=== PATIENT | male | born 1965 | race Caucasian/White ===

== ENCOUNTER 2016-11-20 19:47 | Observation (INO) | payer OTHER ==
--- NOTE | 2016-11-20 20:30 | ED Physician Documentation ---
History of Present Illness - Stated complaint Stated Complaint: FAST HR/HEADACHE - Chief complaint Chief Complaint: General - History obtained from History obtained from: Patient - History of Present Illness Timing: Other (51-year-old gentleman with chronic testicular pain, tobacco abuse , otherwise pretty healthy for the last couple of weeks has noticed some odd symptoms. Every time he walks, he does not have to walk very far he feels his heart pounding and he gets quickly fatigued. There is no associated chest pain or shortness of breath with this. He has not had any exposures to carbon monoxide and his significant other has not had similar symptoms. She does think he has had some unintended weight loss. He has had some urinary frequency and night sweats as well. He denies pedal edema.) Review of Systems Constitutional: reports: Chills, Fatigue, Sweats. denies: Fever Eyes: denies: Loss of vision, Decreased vision Ears: denies: Loss of hearing, Ear pain Nose: denies: Rhinorrhea / runny nose, Congestion Throat: denies: Sore throat Cardiac: reports: Palpitations. denies: Chest pain / pressure, Pedal edema, Calf pain Respiratory: denies: Dyspnea, Cough GI: denies: Abdominal Pain, Nausea PD PAST MEDICAL HISTORY - Past Medical History Past Medical History: Yes - Past Surgical History Past Surgical History: Yes Ortho: Shoulder arthroplasty, Arthroscopic surgery - Allergies Allergies/Adverse Reactions: Allergies Allergy/AdvReac Type Severity Reaction Status Date / Time Penicillins Allergy Unknown Verified 11/20/16 19:53 - Social History Does the pt smoke?: Yes Smoking Status: Current every day smoker Does the pt drink ETOH?: No Does the pt have substance abuse?: No - Immunizations Immunizations are current?: No - POLST Patient has POLST: No PD ED PE NORMAL - Vitals Vital signs reviewed: Yes - General General: Alert and oriented X 3, No acute distress - HEENT HEENT: PERRL, EOMI - Neck Neck: Supple, no meningeal sign, No bony TTP - Cardiac Cardiac: RRR, No murmur - Respiratory Respiratory: No respiratory distress, Clear bilaterally - Abdomen Abdomen: Soft, Non tender - Rectal Rectal: Other (Brown guaiac neg stool) - Back Back: No CVA TTP, No spinal TTP - Derm Derm: Normal color, Warm and dry - Extremities Extremities: No edema, No calf tenderness / cord - Neuro Neuro: Alert and oriented X 3, Normal speech - Psych Psych: Normal mood, Normal affect Results - Vitals Vitals: Vital Signs - 24 hr 11/20/16 19:49 Heart Rate 87 Respiratory 18 Rate Blood Pressure 170/57 H O2 Saturation 99 Oxygen O2 Source Room air - EKG (time done) 1952 Rate: Rate (enter#) (88) Rhythm: NSR [place]: Normal Intervals: Normal [place] QRS: Normal Ischemia: Normal ST segments Computer interpretation: Agree with computer - Labs Labs: Laboratory Tests 11/20/16 11/20/16 11/20/16 19:53 19:53 19:53 WBC 11.8 H RBC 1.83 L Hgb 6.3 L* Hct 17.7 L* MCV 96.4 H MCH 34.5 H MCHC 35.8 RDW 16.4 H Plt Count 26 L* MPV 10.4 Manual Slide Review Indicated Sodium 134 L Potassium 3.8 Chloride 101 Carbon Dioxide 26 Anion Gap 7.0 BUN 19 Creatinine 1.1 Estimated GFR (MDRD) 71 L Glucose 113 H Calcium 9.2 Magnesium 2.2 Total Bilirubin 1.0 AST 37 ALT 17 Alkaline Phosphatase 81 Troponin I < 0.04 Total Protein 7.5 Albumin 3.8 Globulin 3.7 Albumin/Globulin Ratio 1.0 Lipase 25 Ethyl Alcohol 5.4 - Rads (name of study) 2v chest Radiology: EMP read contemporaneously (NAD) PD MEDICAL DECISION MAKING - ED course ED course: 51-year-old gentleman with exertional palpitations and some other systemic symptoms which could have a wide differential diagnosis. He has no identifiable risk factors for pulmonary embolism. He was found to be fairly anemic, guaiac negative, also thrombocytopenic. Given the lack of GI bleeding, primary bone marrow issue and less likely hemolysis is causative, his bilirubin is normal. Case discussed with Dr. Dunlap at 9:10 PM for admission. Departure - Departure Disposition: 66 [facility] DC/Xfer Clinical Impression: Thrombocytopenia Absolute anemia Qualifiers: Anemia type: unspecified type Qualified Code(s): D64.9 - Anemia, unspecified Fatigue Qualifiers: Fatigue type: unspecified Qualified Code(s): R53.83 - Other fatigue Condition: Stable
[2016-11-20 20:55] LABS: BASOPHILS % (AUTO) 1.6 %; EOSINOPHILS % (AUTO) 1.4 %; LYMPHOCYTES % (AUTO) 36.5 %; MEAN CORPUSCULAR HEMOGLOBIN 34.5 pg (27.0-31.0); MEAN CORPUSCULAR HGB CONC 35.8 g/dL (32.0-36.0); MEAN CORPUSCULAR VOLUME 96.4 fL (80.0-94.0); MEAN PLATELET VOLUME 10.4 fL (7.4-11.4); MONOCYTES % (AUTO) 21.3 %; NEUTROPHILS % (AUTO) 39.2 %; RED BLOOD COUNT 1.83 10^6/uL (4.70-6.10); RED CELL DISTRIBUTION WIDTH 16.4 % (12.0-15.0); UNCORRECTED WHITE BLOOD COUNT 11.8 x10^3/uL; WHITE BLOOD COUNT 11.8 x10^3/uL (4.8-10.8)
[2016-11-20 20:56] LABS: HGB - HEMOGLOBIN 6.3 g/dL (14.0-18.0)
[2016-11-20 20:57] LABS: CALCIUM 9.2 mg/dL (8.5-10.3); CREATININE 1.1 mg/dL (0.6-1.2); MAGNESIUM 2.2 mg/dL (1.7-2.8); POTASSIUM 3.8 mmol/L (3.5-5.0); TOTAL PROTEIN 7.5 g/dL (6.7-8.2)
[2016-11-20 20:58] LABS: HCT - HEMATOCRIT 17.7 % (42.0-52.0)
--- NOTE | 2016-11-20 21:05 | XRAY Preliminary Report ---
Exam: XR Chest 2 View PA/LAT IMPRESSION: Unremarkable two-view chest. [facility] SITE ID: [id number]
--- NOTE | 2016-11-20 21:08 | XRAY Report ---
EXAM: CHEST RADIOGRAPHY EXAM DATE: 11/20/2016 08:44 PM. CLINICAL HISTORY: Palpitations, weight loss. COMPARISON: None. TECHNIQUE: 2 views. FINDINGS: Lungs/Pleura: No focal opacities evident. No pleural effusion. No pneumothorax. Normal volumes. Mediastinum: Heart and mediastinal contours are unremarkable. Other: Small thoracic osteophytes. IMPRESSION: Unremarkable two-view chest. [facility] Referring Provider Line: [phone] SITE ID: [id number]
[2016-11-20] MEDS ORDERED: PROCHLORPERAZINE 10 MG/2 ML VIAL IVP PRN (21:11)
[2016-11-20] MEDS ORDERED: ZOLPIDEM 5 MG TABLET PO PRN (21:11)
[2016-11-20] MEDS ORDERED: ONDANSETRON 4 MG/2 ML VIAL IVP PRN (21:11)
[2016-11-20] MEDS ORDERED: HYDROcod/ACETAM 10 MG/325 MG TABLET PO PRN (21:11)
[2016-11-20] MEDS ORDERED: ACETAMINOPHEN 325 MG TABLET PO PRN (21:11)
[2016-11-20] MEDS ORDERED: SODIUM CHLORIDE FLUSH 0.9% 10 ML SYRINGE IVP PRN (21:11)
[2016-11-20] MEDS ORDERED: HYDROcod/ACETAM 5/325 MG TABLET PO PRN (21:11)
[2016-11-20 21:32] LABS: IRON 286 ug/dL (45-182); TOTAL IRON BINDING CAPACITY 325 ug/dL (250-450); TRANSFERRIN 232 mg/dL (180-329)
[2016-11-20 21:53] LABS: BAND NEUTROPHILS % (MANUAL) 1 %; EOSINOPHILS % (MANUAL) 1 %; LYMPHOCYTES % (MANUAL) 30 %; NEUTROPHILS % (MANUAL) 55 %
[2016-11-20 21:54] LABS: FOLATE 5.74 ng/mL (5.90 - >24.8)
[2016-11-20 21:55] LABS: PLATELET ESTIMATE, MANUAL DECREASED (<130,000) (NORMAL)
[2016-11-20 21:59] LABS: NP AUTO DIFFERENTIAL? YES; NP MAN DIFFERENTIAL? NO; PLATELET MORPHOLOGY 2+ GIANT PLATELETS (NORMAL); WBC MORPHOLOGY (MULTIPLE) 1+ HYPERSE (NORMAL)
[2016-11-20 22:07] LABS: SLIDE SENT FOR PATH REVIEW? Indicated
[2016-11-20 22:09] LABS: CBC SPECIMEN NUMBER 725797; PATHOLOGIST REVIEW ORDER PATH SLIDE REVIEW
[2016-11-20] MEDS ORDERED: CYANOCOBALAMIN 1,000 MCG/ML VIAL IM SCH (22:30)
--- NOTE | 2016-11-20 22:50 | HISTORY & PHYSICAL EXAMINATION ---
Chief Complaint - Chief Complaint Chief Complaint: Fatigue History of Present Illness - Admitted From Admitted From:: Emergency Department - History Obtained From Records Reviewed: Yes History obtained from: Patient Exam Limitations: None - History of Present Illness HPI Comment/Other: Patient is a 51 year old male with a past medical history of mold exposure causing weight loss, varicocele, varicose veins and chronic pain who presented to the emergency department with a chief complaint of fatigue. The patient states that over the last 3 weeks he has noticed that he has become progressively more fatigued with very minimal effort or exertion. He states that if he exerts himself at all around the house he feels very fatigued and then has to rest. He also states that he has noticed that when he is walking around his house he feels as though his heart is racing. He states that this has also become progressively worse. He states he has also noticed that he has a poor appetite, feels nauseated when he eats and has noticed worsening heart burn. He also states that he has noticed a lot of phlegm production. He denies any dizziness, chest pain, shortness of breath, cough, orthopnea, increased lower extremity swelling, joint pains, muscle aches, fevers, chills, weight loss , urinary symptoms or focal neurological symptoms. He denies having had any abdominal pain. He also denies any black or dark stools. He denies any hematuria or hematemesis. The patient does admit to being a smoker and was a heavy drinker in the past but quit 3 years ago. On presentation to the ER the patient was afebrile, hypertensive but otherwise had stable vital signs. The patient underwent routine lab work which revealed a hb of 6.3 and a platelet count of 26. He had a WBC of 11.8 with 2% blasts. The patient otherwise had a mild hypnatremia and a mildly decreased folate. The patient most likely has a hematological malignancy and will need outpatient work up including a bone marrow. The patient was placed in observation for a blood transfusion and will need to follow up closely as an outpatient. Review of Systems - Other Findings Other Findings: A comprehensive review of systems was performed and the pertinent positives and negative are stated above in the HPI the remainder of the review of systems is negative. 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 - Past Surgical History Ortho: reports: Shoulder arthroplasty, Arthroscopic surgery - Family & Social History Family History: Mother: Diabetes, Type 2, Hypertension, Father: Cancer (Dad: skin cancer Paternal GF: Prostate Ca PGM: Breast Ca), Other family: Cancer Living arrangement: At home Living Situation: With spouse/s.o. Social History Notes: Patient is originally from [place] outside of [place]. He moved to [facility] 9 years ago with his current as his daughter lived out here. He has been to his current for 4 years and they live together in [place]. He has 2 bilogical kids and 1 step kid. He use to be a heavy drinker. 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 He quir drinking 3 years ago. He smokes 1 pack per day and has been smoking for over 30 years. He denies any illicit drug use. - Substance History Use: Uses substance without health or social issues: Tobacco Abuse: Recurrent use of substance despite neg consequences: NONE Dependence: Experiences withdrawal or developed tolerances: NONE Tobacco Details: Cigarettes - POLST Patient has POLST: No POLST Status: Full Code Meds/Allgy - Home Medications Home Medications: Ambulatory Orders Medication Instructions Recorded Confirmed Ibuprofen [Motrin] 600 mg PO Q6H PRN 11/20/16 11/20/16 Loratadine [Claritin] 10 mg PO DAILY 11/20/16 11/20/16 traMADol [Ultram] 50 mg PO Q4-6H 11/20/16 11/20/16 - Allergies Allergies/Adverse Reactions: Allergies Allergy/AdvReac Type Severity Reaction Status Date / Time Penicillins Allergy Unknown Verified 11/20/16 19:53 Exam - Vital Signs Reviewed Vital Signs: Yes Vital Signs: Vital Signs x48h Temp Pulse Resp BP Pulse Ox 11/20/16 22:00 37.5 C 85 20 166/59 H 98 - Physical Exam General Appearance: positive: No acute distress, Alert Eyes Bilateral: positive: Normal inspection, PERRL, EOMI, No lid inflammation, No scleral icterus. negative: Conjunctivae nml (Conjunctival pallor) ENT: positive: ENT inspection nml, Pharynx nml, Dry mucous membranes. negative : Purulent nasal drainage, Pharyngeal erythema, Oral lesions Neck: positive: Nml inspection, Thyroid nml, No JVD, Trachea midline. negative : Thyromegaly, Lymphadenopathy (R), Lymphadenopathy (L), Stiff neck, Carotid bruit, Swelling/bruising, Tracheal deviation Respiratory: positive: Chest non-tender, No respiratory distress, Breath sounds nml. negative: Wheezes, Rales, Rhonchi Cardiovascular: positive: Regular rate & rhythm, No murmur, No gallop Peripheral Pulses: positive: 2+ Abdomen: positive: Non-tender, No organomegaly, Nml bowel sounds, No distention. negative: Guarding, Rebound, Hepatomegaly Rectal: positive: Stool - heme NEG Back: positive: Nml inspection. negative: CVA tenderness (R), CVA tenderness (L ) Skin: positive: No rash, Dry, Pallor. negative: Cyanosis Extremities: positive: Non-tender, Full ROM, Nml appearance, No pedal edema, Other (Varicose veins) Neurologic/Psychiatric: positive: Oriented x3, CN's nml (2-12), Motor nml, Sensation nml, Mood/affect nml Conclusion/Plan - Problem List (1) Symptomatic anemia Conclusion/Plan: Patient presented with progressive fatigue with exertion Found to have anemia with Hb of 6.3 thrombocytopenia with Plt count of 26 and leukocytosis with 2% blasts Very concerning for hematological malignancy Anemia with high MCV partially secondary to folate deficiency but likely mostly secondary to hematological malignancy Since patient is symptomatic and Hb less than 7 patient will be placed in obs for blood transfusion Iron studies were normal, B12 normal, bili normal and Haptoglobin pending Giuiac negative stool No dark or bloody stools Plan: Place in obs Transfuse 3 units of PRBCs Recheck Hb post transfusion Patient counselled and instructed to follow up with PCP to get a referral to Hem /Onc for bone marrow biopsy and further workup and treatment (2) Fatigue Conclusion/Plan: Patient presented with 3 weeks of increasing fatigue especially with exertion Found to be anemic with Hb of 6.3 and thrombocytopenic with Plt count of 26 Patient also found to have leukocytosis of 11.8 with 2% blasts Fatigue likely secondary to anemia and throbocytopenia which are likely secondary to hematological malignancy Patient counselled and instructed to follow up with PCP to get a referral to Hem /Onc for bone marrow biopsy and further workup and treatment Qualifiers: Fatigue type: due to neoplasm Qualified Code(s): R53.0 - Neoplastic ( malignant) related fatigue (3) Thrombocytopenia Conclusion/Plan: Plt count 26 without active bleeding Patient is symptomatic with fatigue on exertion Likely secondary to hematological malignancy as patient also has anemia and blast on differential Will not transfuse plts as patient is not actively bleeding Patient counselled and instructed to follow up with PCP to get a referral to Hem /Onc for bone marrow biopsy and further workup and treatment (4) Folate deficiency Conclusion/Plan: Patient presented with anemia likely due to hematological malignancy but also found to have high MVC and folate deficiency Give Folate daily (5) Tobacco abuse Conclusion/Plan: Patient smokes 1 PPD and has been doing so for over 30 years Patient was counselled and wants to quit Patient given Nicotine patch for hospitalization (6) Hypertension Conclusion/Plan: Patient does not have history of hypertension but BP was elevated on presentation Will monitor BP if it remains elevated patient may need to be started on antihypertensive medication Monitor BP Patient needs outpatient follow up with PCP (7) Hyponatremia Conclusion/Plan: Patient appears dry this is likely hypovolemic hyponatremia Patient will get blood Monitor Na - Lab Results Lab results reviewed: Yes Fish Bones: 11/20/16 19:53 11/20/16 19:53 Other Lab Results: Laboratory Results WBC 11.8 x10^3/uL (4.8-10.8) H 11/20/16 19:53 RBC 1.83 10^6/uL (4.70-6.10) L 11/20/16 19:53 Hgb 6.3 g/dL (14.0-18.0) L* 11/20/16 19:53 Hct 17.7 % (42.0-52.0) L* 11/20/16 19:53 MCV 96.4 fL (80.0-94.0) H 11/20/16 19:53 MCH 34.5 pg (27.0-31.0) H 11/20/16 19:53 MCHC 35.8 g/dL (32.0-36.0) 11/20/16 19:53 RDW 16.4 % (12.0-15.0) H 11/20/16 19:53 Plt Count 26 10^3/uL (130-450) L* 11/20/16 19:53 MPV 10.4 fL (7.4-11.4) 11/20/16 19:53 Neut # Not Reportable 11/20/16 19:53 Lymph # Not Reportable 11/20/16 19:53 [place] # Not Reportable 11/20/16 19:53 Eos # Not Reportable 11/20/16 19:53 Baso # Not Reportable 11/20/16 19:53 Absolute Nucleated RBC Not Reportable 11/20/16 19:53 Band Neuts % (Manual) 1 % (0-10) 11/20/16 19:53 Myelocytes % 2 % (-0) H 11/20/16 19:53 Blast Cells % 2 % H* 11/20/16 19:53 Neutrophils # (Manual) 6.6 10^3/uL (1.5-6.6) 11/20/16 19:53 Lymphocytes # (Manual) 3.5 10^3/uL (1.5-3.5) 11/20/16 19:53 Monocytes # (Manual) 1.1 10^3/uL (0.0-1.0) H 11/20/16 19:53 Eosinophils # (Manual) 0.1 10^3/uL (0-0.7) 11/20/16 19:53 Nucleated RBCs 8 % 11/20/16 19:53 Manual Slide Review Indicated 11/20/16 19:53 WBC Morphology 1+ HYPERSE (NORMAL) 11/20/16 19:53 Platelet Estimate DECREASED (<130,000) (NORMAL) 11/20/16 19:53 Platelet Morphology 2+ GIANT PLATELETS (NORMAL) 11/20/16 19:53 RBC Morph Micro Appear 2+ ANISOCYTOSIS (NORMAL) 2+ MICROCYTOSIS (NORMAL) 1+ MACROCYTOSIS (NORMAL) 1+ POLYCHROMASIA (NORMAL) 11/20/16 19:53 RBC Morph Micro Appear 2+ ANISOCYTOSIS (NORMAL) 2+ MICROCYTOSIS (NORMAL) 1+ MACROCYTOSIS (NORMAL) 1+ POLYCHROMASIA (NORMAL) 11/20/16 19:53 RBC Morph Micro Appear 2+ ANISOCYTOSIS (NORMAL) 2+ MICROCYTOSIS (NORMAL) 1+ MACROCYTOSIS (NORMAL) 1+ POLYCHROMASIA (NORMAL) 11/20/16 19:53 RBC Morph Micro Appear 2+ ANISOCYTOSIS (NORMAL) 2+ MICROCYTOSIS (NORMAL) 1+ MACROCYTOSIS (NORMAL) 1+ POLYCHROMASIA (NORMAL) 11/20/16 19:53 Sodium 134 mmol/L (135-145) L 11/20/16 19:53 Potassium 3.8 mmol/L (3.5-5.0) 11/20/16 19:53 Chloride 101 mmol/L (101-111) 11/20/16 19:53 Carbon Dioxide 26 mmol/L (21-32) 11/20/16 19:53 Anion Gap 7.0 (6-13) 11/20/16 19:53 BUN 19 mg/dL (6-20) 11/20/16 19:53 Creatinine 1.1 mg/dL (0.6-1.2) 11/20/16 19:53 Estimated GFR (MDRD) 71 (>89) L 11/20/16 19:53 Glucose 113 mg/dL (70-100) H 11/20/16 19:53 Calcium 9.2 mg/dL (8.5-10.3) 11/20/16 19:53 Magnesium 2.2 mg/dL (1.7-2.8) 11/20/16 19:53 Iron 286 ug/dL (45-182) H 11/20/16 20:50 TIBC 325 ug/dL (250-450) 11/20/16 20:50 % Saturation 88 % (20-50) H 11/20/16 20:50 Transferrin 232 mg/dL (180-329) 11/20/16 20:50 Total Bilirubin 1.0 mg/dL (0.2-1.0) 11/20/16 19:53 AST 37 IU/L (10-42) 11/20/16 19:53 ALT 17 IU/L (10-60) 11/20/16 19:53 Alkaline Phosphatase 81 IU/L (42-121) 11/20/16 19:53 Lactate Dehydrogenase 463 IU/L (91-225) H 11/20/16 20:50 Troponin I < 0.04 ng/mL (<0.49) 11/20/16 19:53 Total Protein 7.5 g/dL (6.7-8.2) 11/20/16 19:53 Albumin 3.8 g/dL (3.2-5.5) 11/20/16 19:53 Globulin 3.7 g/dL (2.1-4.2) 11/20/16 19:53 Albumin/Globulin Ratio 1.0 (1.0-2.2) 11/20/16 19:53 Lipase 25 U/L (22-51) 11/20/16 19:53 Vitamin B12 725 pg/mL (180-914) 11/20/16 19:53 Folate 5.74 ng/mL (5.90 - >24.8) L 11/20/16 19:53 TSH 1.55 uIU/mL (0.34-5.60) 11/20/16 19:53 Urine Color YELLOW 11/20/16 22:30 Urine Clarity CLEAR (CLEAR) 11/20/16 22:30 Urine pH 6.0 PH (5.0-7.5) 11/20/16 22:30 Ur Specific [place] 1.010 (1.002-1.030) 11/20/16 22:30 Urine Protein NEGATIVE mg/dL (NEGATIVE) 11/20/16 22:30 Urine Glucose (UA) NEGATIVE mg/dL (NEGATIVE) 11/20/16 22:30 Urine Ketones NEGATIVE mg/dL (NEGATIVE) 11/20/16 22:30 Urine Occult Blood NEGATIVE (NEGATIVE) 11/20/16 22:30 Urine Nitrite NEGATIVE (NEGATIVE) 11/20/16 22:30 Urine Bilirubin NEGATIVE (NEGATIVE) 11/20/16 22:30 Urine Urobilinogen 0.2 (NORMAL) E.U./dL (NORMAL) 11/20/16 22:30 Ur Leukocyte Esterase NEGATIVE (NEGATIVE) 11/20/16 22:30 Ur Microscopic Review NOT INDICATED 11/20/16 22:30 Urine Culture Comments NOT INDICATED 11/20/16 22:30 Ethyl Alcohol 5.4 mg/dL 11/20/16 19:53 Slides for Path Review Indicated 11/20/16 19:53 Blood Type A POSITIVE 11/20/16 21:21 Blood Type Recheck A POSITIVE 11/20/16 19:53 Antibody Screen NEGATIVE 11/20/16 21:21 Crossmatch IS Only See Detail 11/20/16 21:21 - EKG Results EKG Interpreted Independently: Yes Issues/Core Measures - Anticipated LOS Anticipated Stay Length: Less than 2 midnights - DVT/VTE - Prophylaxis VTE/DVT Device ordered at admit?: Yes
[2016-11-20 22:57] LABS: BILIRUBIN,URINE NEGATIVE (NEGATIVE)
[2016-11-20 23:06] LABS: UA CHARGE (STRIP ONLY) YES; UR CULTURE IF IND NOT INDICATED
[2016-11-20] MEDS: SODIUM CHLORIDE FLUSH 0.9% 10 ML SYRINGE IVP SCH (23:58)
[2016-11-21] MEDS: SODIUM CHLORIDE FLUSH 0.9% 10 ML SYRINGE IVP SCH ×2 (05:46→12:52)
[2016-11-21] MEDS ORDERED: PANTOPRAZOLE 40 MG TABLET PO SCH (07:00)
--- NOTE | 2016-11-21 07:02 | PROVIDER PROGRESS NOTE ---
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 Patient was transfused with two units of packed red blood cells. Will need platelets since his count is now 13 from 26 after transfusion of PRBC. platelets ordered. he is wanting to have PCP decide where he should be transferred for oncology. wanting to go in the morning after talking with her. will continue to monitor CBC and for fever and worsening lab values and symptoms. 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 will continue to monitor CBC and transfusions completed. (3) Hyponatremia Assessment/Plan: acute with hypoosmolality. replace with IVF and monitor electrolytes with daily lab draws. (4) Tobacco abuse Assessment/Plan: chronic. will give nicotine patch and counseling and education provided for cessation (5) Obesity (BMI 30.0-34.9) Assessment/Plan: chronic. patient has BMI of 31 but has lost weight in the last several weeks related to diagnosis of probably malignancy - Current Meds Current Meds: Current Medications Generic Name Dose Route Start Last Admin Trade Name Freq PRN Reason Stop Dose Admin Pantoprazole Sodium 40 mg 11/21/16 07:00 11/21/16 05:46 Protonix PO Not Given QDAC BEBO Sodium Chloride 10 ml 11/20/16 22:00 11/21/16 05:46 Normal Saline Flush 0.9% IVP Not Given Q8HR BEBO - Lab Result Lab results reviewed: Yes Fish Bone Diagrams: 11/21/16 08:40 11/21/16 08:40 Other Lab Results: Abnormal Lab Results 11/20/16 11/20/16 11/20/16 19:53 19:53 19:53 WBC 11.8 x10^3/uL H x10^3/uL (4.8-10.8) RBC 1.83 10^6/uL L 10^6/uL (4.70-6.10) Hgb 6.3 g/dL L* g/dL (14.0-18.0) Hct 17.7 % L* % (42.0-52.0) MCV 96.4 fL H fL (80.0-94.0) MCH 34.5 pg H pg (27.0-31.0) RDW 16.4 % H % (12.0-15.0) Plt Count 26 10^3/uL L* 10^3/uL (130-450) Myelocytes % 2 % H % ( - 0) Promyelocytes % Blast Cells % 2 % H* % Monocytes # (Manual) 1.1 10^3/uL H 10^3/uL (0.0-1.0) PT INR Sodium 134 mmol/L L mmol/L (135-145) Estimated GFR (MDRD) 71 L (>89) Glucose 113 mg/dL H mg/dL (70-100) Iron % Saturation Ferritin Total Bilirubin Lactate Dehydrogenase Albumin/Globulin Ratio Folate 5.74 ng/mL L ng/mL (5.90 - >24.8) Crossmatch IS Only 11/20/16 11/20/16 11/20/16 20:50 20:50 21:21 WBC RBC Hgb Hct MCV MCH RDW Plt Count Myelocytes % Promyelocytes % Blast Cells % Monocytes # (Manual) PT INR Sodium Estimated GFR (MDRD) Glucose Iron 286 ug/dL H ug/dL (45-182) % Saturation 88 % H % (20-50) Ferritin Total Bilirubin Lactate Dehydrogenase 463 IU/L H IU/L (91-225) Albumin/Globulin Ratio Folate Crossmatch IS Only See Detail 11/20/16 11/21/16 11/21/16 21:21 08:40 08:40 WBC RBC 2.71 10^6/uL L 10^6/uL (4.70-6.10) Hgb 8.7 g/dL L g/dL (14.0-18.0) Hct 24.5 % L % (42.0-52.0) MCV MCH 31.9 pg H pg (27.0-31.0) RDW 15.8 % H % (12.0-15.0) Plt Count 13 10^3/uL L* 10^3/uL (130-450) Myelocytes % 5 % H % ( - 0) Promyelocytes % 3 % H % ( - 0) Blast Cells % 2 % H* % Monocytes # (Manual) 1.8 10^3/uL H 10^3/uL (0.0-1.0) PT 14.7 secs H secs (9.9-12.6) INR 1.3 H (0.8-1.2) Sodium Estimated GFR (MDRD) Glucose Iron % Saturation Ferritin Total Bilirubin Lactate Dehydrogenase Albumin/Globulin Ratio Folate Crossmatch IS Only See Detail 11/21/16 11/21/16 11/21/16 08:40 08:40 08:40 WBC RBC 2.74 10^6/uL L 10^6/uL (4.70-6.10) Hgb Hct MCV MCH RDW Plt Count Myelocytes % Promyelocytes % Blast Cells % Monocytes # (Manual) PT INR Sodium Estimated GFR (MDRD) Glucose 105 mg/dL H mg/dL (70-100) Iron 265 ug/dL H ug/dL (45-182) % Saturation 90 % H % (20-50) Ferritin Total Bilirubin 1.2 mg/dL H mg/dL (0.2-1.0) Lactate Dehydrogenase Albumin/Globulin Ratio 0.8 L (1.0-2.2) Folate Crossmatch IS Only 11/21/16 11/21/16 08:40 08:40 WBC RBC Hgb Hct MCV MCH RDW Plt Count Myelocytes % Promyelocytes % Blast Cells % Monocytes # (Manual) PT INR Sodium Estimated GFR (MDRD) Glucose Iron % Saturation Ferritin 512.1 ng/mL H ng/mL (23.9-336.2) Total Bilirubin Lactate Dehydrogenase 422 IU/L H IU/L (91-225) Albumin/Globulin Ratio Folate Crossmatch IS Only - EKG Results EKG Interpreted Independently: No - Additional Planning Condition/Complexity: Stable Consult/Specialty: Oncology Plan Discussed with:: Patient, Spouse, Case Management Time Spent: 31-60 minutes Additional Planning Notes: Patient needs to be transferred to [facility] with an oncology referral for evaluation of the hemolytic malignancy probability. He requested to check with insurance and primary care provider to see if they will cover it. Case managment called [facility] and patient is covered to go to for treatment. need to inform PCP of patients plan. Subjective - Subjective Patient Reports: Feeling Better, Resting Comfortably, No Complaints, Other ( patient feels better, no chest pain or shortness of breath. no nausea or vomiting. tolerating meal without difficulty.) Nursing Reports: No Complaints, Other (hungry and wanting to eat) Objective Vital Signs: Vital Signs - 24 hr 11/20/16 11/21/16 22:00 00:56 Temperature 37.5 C 37.4 C Heart Rate [ 71 Brachial] Heart Rate [ 85 Radial] Respiratory 20 20 Rate Blood Pressure 166/59 H 144/57 H [Right Brachial artery] O2 Saturation 98 98 Oxygen O2 Source Room air I&O (Last 24 Hrs): Intake and Output Totals x24h 11/19/16 11/20/16 11/21/16 23:59 23:59 23:59 Output Total 240 Balance -240 General: Alert, Oriented x3, Cooperative HEENT: Atraumatic, PERRLA, EOMI Neck: Supple, No JVD, No thyromegaly Lymphatic: no adenopathy Neuro: Alert, CN 2-12 Grossly Intact, Oriented Times 3 Cardiovascular: Regular rate, Normal S1, Normal S2 Respiratory: Chest non-tender, No respiratory distress, Breath sounds nml Abdomen: Normal bowel sounds, Soft, No tenderness, No hepatospenomegaly Genitourinary: Normal Inspection Rectal: Non-Tender Extremities: No clubbing, No cyanosis, No edema, Normal pulses, No tenderness/ swelling Skin: No rashes, No breakdown, No significant lesion Comments/Notes: color improved with transfusion - Results Results: Laboratory Results WBC 11.8 x10^3/uL (4.8-10.8) H 11/20/16 19:53 RBC 1.83 10^6/uL (4.70-6.10) L 11/20/16 19:53 Hgb 6.3 g/dL (14.0-18.0) L* 11/20/16 19:53 Hct 17.7 % (42.0-52.0) L* 11/20/16 19:53 MCV 96.4 fL (80.0-94.0) H 11/20/16 19:53 MCH 34.5 pg (27.0-31.0) H 11/20/16 19:53 MCHC 35.8 g/dL (32.0-36.0) 11/20/16 19:53 RDW 16.4 % (12.0-15.0) H 11/20/16 19:53 Plt Count 26 10^3/uL (130-450) L* 11/20/16 19:53 MPV 10.4 fL (7.4-11.4) 11/20/16 19:53 Neut # Not Reportable 11/20/16 19:53 Lymph # Not Reportable 11/20/16 19:53 Esmeralda # Not Reportable 11/20/16 19:53 Eos # Not Reportable 11/20/16 19:53 Baso # Not Reportable 11/20/16 19:53 Absolute Nucleated RBC Not Reportable 11/20/16 19:53 Band Neuts % (Manual) 1 % (0-10) 11/20/16 19:53 Myelocytes % 2 % (-0) H 11/20/16 19:53 Blast Cells % 2 % H* 11/20/16 19:53 Neutrophils # (Manual) 6.6 10^3/uL (1.5-6.6) 11/20/16 19:53 Lymphocytes # (Manual) 3.5 10^3/uL (1.5-3.5) 11/20/16 19:53 Monocytes # (Manual) 1.1 10^3/uL (0.0-1.0) H 11/20/16 19:53 Eosinophils # (Manual) 0.1 10^3/uL (0-0.7) 11/20/16 19:53 Nucleated RBCs 8 % 11/20/16 19:53 Manual Slide Review Indicated 11/20/16 19:53 WBC Morphology 1+ HYPERSE (NORMAL) 11/20/16 19:53 Platelet Estimate DECREASED (<130,000) (NORMAL) 11/20/16 19:53 Platelet Morphology 2+ GIANT PLATELETS (NORMAL) 11/20/16 19:53 RBC Morph Micro Appear 2+ ANISOCYTOSIS (NORMAL) 2+ MICROCYTOSIS (NORMAL) 1+ MACROCYTOSIS (NORMAL) 1+ POLYCHROMASIA (NORMAL) 11/20/16 19:53 RBC Morph Micro Appear 2+ ANISOCYTOSIS (NORMAL) 2+ MICROCYTOSIS (NORMAL) 1+ MACROCYTOSIS (NORMAL) 1+ POLYCHROMASIA (NORMAL) 11/20/16 19:53 RBC Morph Micro Appear 2+ ANISOCYTOSIS (NORMAL) 2+ MICROCYTOSIS (NORMAL) 1+ MACROCYTOSIS (NORMAL) 1+ POLYCHROMASIA (NORMAL) 11/20/16 19:53 RBC Morph Micro Appear 2+ ANISOCYTOSIS (NORMAL) 2+ MICROCYTOSIS (NORMAL) 1+ MACROCYTOSIS (NORMAL) 1+ POLYCHROMASIA (NORMAL) 11/20/16 19:53 Sodium 134 mmol/L (135-145) L 11/20/16 19:53 Potassium 3.8 mmol/L (3.5-5.0) 11/20/16 19:53 Chloride 101 mmol/L (101-111) 11/20/16 19:53 Carbon Dioxide 26 mmol/L (21-32) 11/20/16 19:53 Anion Gap 7.0 (6-13) 11/20/16 19:53 BUN 19 mg/dL (6-20) 11/20/16 19:53 Creatinine 1.1 mg/dL (0.6-1.2) 11/20/16 19:53 Estimated GFR (MDRD) 71 (>89) L 11/20/16 19:53 Glucose 113 mg/dL (70-100) H 11/20/16 19:53 Calcium 9.2 mg/dL (8.5-10.3) 11/20/16 19:53 Magnesium 2.2 mg/dL (1.7-2.8) 11/20/16 19:53 Iron 286 ug/dL (45-182) H 11/20/16 20:50 TIBC 325 ug/dL (250-450) 11/20/16 20:50 % Saturation 88 % (20-50) H 11/20/16 20:50 Transferrin 232 mg/dL (180-329) 11/20/16 20:50 Total Bilirubin 1.0 mg/dL (0.2-1.0) 11/20/16 19:53 AST 37 IU/L (10-42) 11/20/16 19:53 ALT 17 IU/L (10-60) 11/20/16 19:53 Alkaline Phosphatase 81 IU/L (42-121) 11/20/16 19:53 Lactate Dehydrogenase 463 IU/L (91-225) H 11/20/16 20:50 Troponin I < 0.04 ng/mL (<0.49) 11/20/16 19:53 Total Protein 7.5 g/dL (6.7-8.2) 11/20/16 19:53 Albumin 3.8 g/dL (3.2-5.5) 11/20/16 19:53 Globulin 3.7 g/dL (2.1-4.2) 11/20/16 19:53 Albumin/Globulin Ratio 1.0 (1.0-2.2) 11/20/16 19:53 Lipase 25 U/L (22-51) 11/20/16 19:53 Vitamin B12 725 pg/mL (180-914) 11/20/16 19:53 Folate 5.74 ng/mL (5.90 - >24.8) L 11/20/16 19:53 TSH 1.55 uIU/mL (0.34-5.60) 11/20/16 19:53 Urine Color YELLOW 11/20/16 22:30 Urine Clarity CLEAR (CLEAR) 11/20/16 22:30 Urine pH 6.0 PH (5.0-7.5) 11/20/16 22:30 Ur Specific [place] 1.010 (1.002-1.030) 11/20/16 22:30 Urine Protein NEGATIVE mg/dL (NEGATIVE) 11/20/16 22:30 Urine Glucose (UA) NEGATIVE mg/dL (NEGATIVE) 11/20/16 22:30 Urine Ketones NEGATIVE mg/dL (NEGATIVE) 11/20/16 22:30 Urine Occult Blood NEGATIVE (NEGATIVE) 11/20/16 22:30 Urine Nitrite NEGATIVE (NEGATIVE) 11/20/16 22:30 Urine Bilirubin NEGATIVE (NEGATIVE) 11/20/16 22:30 Urine Urobilinogen 0.2 (NORMAL) E.U./dL (NORMAL) 11/20/16 22:30 Ur Leukocyte Esterase NEGATIVE (NEGATIVE) 11/20/16 22:30 Ur Microscopic Review NOT INDICATED 11/20/16 22:30 Urine Culture Comments NOT INDICATED 11/20/16 22:30 Ethyl Alcohol 5.4 mg/dL 11/20/16 19:53 Slides for Path Review Indicated 11/20/16 19:53 Blood Type A POSITIVE 11/20/16 21:21 Blood Type Recheck A POSITIVE 11/20/16 19:53 Antibody Screen NEGATIVE 11/20/16 21:21 Crossmatch IS Only See Detail 11/20/16 21:21 - Procedures Procedures: blood transfusion with 3 units of PRBC and 1 platelets
--- NOTE | 2016-11-21 08:47 | Ultrasound Preliminary Report ---
Exam: US Abdomen Complete IMPRESSION: 1. Slightly nodular liver contour suggestive of underlying cirrhosis. No focal liver lesion. 2. Splenomegaly by volume measurement [facility] SITE ID: [id number]
--- NOTE | 2016-11-21 08:50 | Ultrasound Report ---
EXAM: ABDOMEN ULTRASOUND EXAM DATE: 11/21/2016 08:09 AM. CLINICAL HISTORY: Low plts looking for splenomegaly or cirrhosis. COMPARISON: None. TECHNIQUE: Real-time scanning was performed with static images obtained. FINDINGS: Liver: Nodular contour. Heterogeneous. 19.7 cm. Main portal vein flow: Hepatopetal. Gallbladder: Normal. No stones, wall thickening, or sonographic Chapa's sign. Biliary System: Common bile duct measures 23 mm. No intrahepatic or extrahepatic ductal dilatation. Pancreas: Visualized portion is unremarkable. Kidneys: Right: 10.7 cm longitudinally. Normal. No contour-deforming mass, stones, or hydronephrosis. Left: 12.4 cm longitudinally. Normal. No contour-deforming mass, stones, or hydronephrosis. Spleen: 13.8 x 13.6 x 5.2 cm for a volume of 509 mL. Splenomegaly Aorta and Inferior Vena Cava: Unremarkable. IMPRESSION: 1. Slightly nodular liver contour suggestive of underlying cirrhosis. No focal liver lesion. 2. Splenomegaly by volume measurement [facility] Referring Provider Line: [phone] SITE ID: [id number]
[2016-11-21 08:59] LABS: BASOPHILS % (AUTO) 1.2 %; HCT - HEMATOCRIT 24.5 % (42.0-52.0); HGB - HEMOGLOBIN 8.7 g/dL (14.0-18.0); LYMPHOCYTES % (AUTO) 30.5 %; MEAN CORPUSCULAR HEMOGLOBIN 31.9 pg (27.0-31.0); MEAN CORPUSCULAR HGB CONC 35.4 g/dL (32.0-36.0); MEAN CORPUSCULAR VOLUME 90.2 fL (80.0-94.0); MEAN PLATELET VOLUME 9.3 fL (7.4-11.4); MONOCYTES % (AUTO) 21.7 %; NEUTROPHILS % (AUTO) 45.6 %; RED BLOOD COUNT 2.71 10^6/uL (4.70-6.10); RED CELL DISTRIBUTION WIDTH 15.8 % (12.0-15.0); UNCORRECTED WHITE BLOOD COUNT 9.2 x10^3/uL; WHITE BLOOD COUNT 9.2 x10^3/uL (4.8-10.8)
[2016-11-21] MEDS ORDERED: POLYETHYLENE GLYCOL 3350 17 GM PACKET PO SCH (09:00)
[2016-11-21] MEDS ORDERED: FOLIC ACID 1 MG TABLET PO SCH (09:00)
[2016-11-21] MEDS ORDERED: NICOTINE 21 MG PATCH TOP SCH (09:00)
[2016-11-21 09:06] LABS: INR 1.3 (0.8-1.2); PT - PROTHROMBIN TIME 14.7 secs (9.9-12.6)
[2016-11-21 09:12] LABS: ALBUMIN/GLOBULIN RATIO 0.8 (1.0-2.2); BILIRUBIN,TOTAL 1.2 mg/dL (0.2-1.0); CREATININE 0.9 mg/dL (0.6-1.2); MAGNESIUM 2.1 mg/dL (1.7-2.8); PHOSPHORUS 3.7 mg/dL (2.5-4.6); POTASSIUM 4.2 mmol/L (3.5-5.0)
[2016-11-21] MEDS: traMADol 50 MG TABLET PO SCH ×3 (09:17→16:48)
[2016-11-21 09:28] LABS: IMMATURE RETIC FRACTION 0.56; RED BLOOD COUNT 2.74 10^6/uL (4.70-6.10)
[2016-11-21 09:49] LABS: IRON 265 ug/dL (45-182); TOTAL IRON BINDING CAPACITY 294 ug/dL (250-450); TRANSFERRIN 210 mg/dL (180-329)
[2016-11-21 09:54] LABS: FERRITIN 512.1 ng/mL (23.9-336.2)
[2016-11-21 10:12] LABS: BAND NEUTROPHILS % (MANUAL) 1 %; EOSINOPHILS % (MANUAL) 1 %; LYMPHOCYTES % (MANUAL) 32 %; NEUTROPHILS % (MANUAL) 36 %
[2016-11-21 10:13] LABS: NP AUTO DIFFERENTIAL? YES; NP MAN DIFFERENTIAL? NO; PLATELET ESTIMATE, MANUAL DECREASED (<130,000) (NORMAL); PLATELET MORPHOLOGY 1+ GIANT PLATELETS (NORMAL)
[2016-11-21 10:14] LABS: WBC MORPHOLOGY (MULTIPLE) 1+ HYPERSEG NEUT (NORMAL)
[2016-11-21 11:59] VITALS: BP 146/58
--- NOTE | 2016-11-21 17:48 | Discharge Plan ---
Discharge Plan Disposition: Home, Self Care Condition: Stable Prescriptions: Folic Acid 1 mg PO DAILY #30 tablet Nicotine 21 mg Patch [Nicoderm] 1 patch TOP DAILY #15 patch Diet: Regular Activity Restrictions: Activity as Tolerated Shower Restrictions: No Driving Restrictions: No Weight Bearing: Full Weight Instruction Topics: Anemia Cancer Additional Instructions or Follow Up instructions: Please continue to take all home medications as prescribed. Take the Folate and Nicotine patch as directed. 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 You have already been referred to [facility] with your insurance company with preauthorization pending. Continue to eat your normal diet but limit soda and caffeine. Increase your intake of protein and avoid toxins, organic is best. Get plenty of sleep for your body to heal. 7-8 hours at night is encouraged. Return to the ER if you have more symptoms, bleeding, fever, chest pain or shortness of breath. No Smoking: If you smoke, Please STOP! Call for help. Follow-up with: Evan Hunter DO [Physician No Access] -
--- NOTE | 2016-11-21 17:59 | DISCHARGE SUMMARY ---
"Discharge Summary Admit Date: 11/20/16 Discharge Date: 11/21/16 Discharging Provider: Coni Ballard APRN Code Status: Attempt Resuscitation Condition at Discharge: Stable Discharge Disposition: 01 Home, Self Care Discharge Facility Name: home - DIAGNOSES Admission Diagnoses: 1. acute anemia, unspecified 2. Obesity with BMI>30 3. Thrombocytopenia 4. Acute fatigue 5. Tobacco abuse 6. Hypokalemia Discharge Diagnoses with Status of Each Condition: 1. 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 Tobacco abuse, uncomplicated 3. Hypertension, essential 4. Acute hypokalemia 5. Obesity with BMI >30 - HPI History of Present Illness: Patient is a 51 year old male with a past medical history of mold exposure causing weight loss, varicocele, varicose veins and chronic pain who presented to the emergency department with a chief complaint of fatigue. The patient states that over the last 3 weeks he has noticed that he has become progressively more fatigued with very minimal effort or exertion. He states that if he exerts himself at all around the house he feels very fatigued and then has to rest. He also states that he has noticed that when he is walking around his house he feels as though his heart is racing. He states that this has also become progressively worse. He states he has also noticed that he has a poor appetite, feels nauseated when he eats and has noticed worsening heart burn. He also states that he has noticed a lot of phlegm production. He denies any dizziness, chest pain, shortness of breath, cough, orthopnea, increased lower extremity swelling, joint pains, muscle aches, fevers, chills, weight loss , urinary symptoms or focal neurological symptoms. He denies having had any abdominal pain. He also denies any black or dark stools. He denies any hematuria or hematemesis. The patient does admit to being a smoker and was a heavy drinker in the past but quit 3 years ago. On presentation to the ER the patient was afebrile, hypertensive but otherwise had stable vital signs. The patient underwent routine lab work which revealed a hb of 6.3 and a platelet count of 26. He had a WBC of 11.8 with 2% blasts. The patient otherwise had a mild hypnatremia and a mildly decreased folate. The patient most likely has a hematological malignancy and will need outpatient work up including a bone marrow. The patient was placed in observation for a blood transfusion and will need to follow up closely as an outpatient. - CONSULTS | PROCEDURES Consultations: none Procedures: blood transfusion with packed red blood cells and platelets - HOSPITAL COURSE Hospital Course: 1) Symptomatic anemia Conclusion/Plan: Patient presented with progressive fatigue with exertion Found to have anemia with Hb of 6.3 thrombocytopenia with Plt count of 26 and leukocytosis with 2% blasts Very concerning for hematological malignancy Anemia with high MCV partially secondary to folate deficiency but likely mostly secondary to hematological malignancy Since patient is symptomatic and Hb less than 7 patient will be placed in obs for blood transfusion Iron studies were normal, B12 normal, bili normal and Haptoglobin pending Giuiac negative stool No dark or bloody stools Plan: Place in obs Transfuse 3 units of PRBCs Recheck Hb post transfusion Patient counselled and instructed to follow up with PCP to get a referral to Hem /Onc for bone marrow biopsy and further workup and treatment (2) Fatigue Conclusion/Plan: Patient presented with 3 weeks of increasing fatigue especially with exertion Found to be anemic with Hb of 6.3 and thrombocytopenic with Plt count of 26 Patient also found to have leukocytosis of 11.8 with 2% blasts Fatigue likely secondary to anemia and throbocytopenia which are likely secondary to hematological malignancy Patient counselled and instructed to follow up with PCP to get a referral to Hem /Onc for bone marrow biopsy and further workup and treatment (3) Thrombocytopenia Conclusion/Plan: Plt count 26 without active bleeding Patient is symptomatic with fatigue on exertion Likely secondary to hematological malignancy as patient also has anemia and blast on differential Will not transfuse plts as patient is not actively bleeding Patient counselled and instructed to follow up with PCP to get a referral to Hem /Onc for bone marrow biopsy and further workup and treatment (5) Tobacco abuse Conclusion/Plan: Patient smokes 1 PPD and has been doing so for over 30 years Patient was counselled and wants to quit Patient given Nicotine patch for hospitalization (6) Hypertension Conclusion/Plan: Patient does not have history of hypertension but BP was elevated on presentation Will monitor BP if it remains elevated patient may need to be started on antihypertensive medication Monitor BP Patient needs outpatient follow up with PCP ( - ALLERGIES Allergies/Adverse Reactions: Allergies Allergy/AdvReac Type Severity Reaction Status Date / Time Penicillins Allergy Unknown Verified 11/20/16 19:53 - MEDICATIONS Home Medications: Ambulatory Orders Medication Instructions Recorded Confirmed Loratadine [Claritin] 10 mg PO DAILY 11/20/16 11/20/16 traMADol [Ultram] 50 mg PO Q4-6H 11/20/16 11/20/16 Folic Acid 1 mg PO DAILY #30 tablet 11/21/16 Nicotine 21 mg Patch [Nicoderm] 1 patch TOP DAILY #15 patch 11/21/16 - PHYSICAL EXAM AT DISCHARGE General Appearance: positive: No acute distress, Alert Eyes Bilateral: positive: Normal inspection, PERRL, EOMI ENT: positive: Pharynx nml, No signs of dehydration Neck: positive: Nml inspection, Thyroid nml, No JVD, Trachea midline Respiratory: positive: Chest non-tender, No respiratory distress, Breath sounds nml Cardiovascular: positive: Regular rate & rhythm, No murmur, No gallop Peripheral Pulses: positive: 2+ Abdomen: positive: Non-tender, No organomegaly, No distention Back: positive: Nml inspection. negative: CVA tenderness (R), CVA tenderness (L ) Skin: positive: Color nml, No rash, Warm, Dry Extremities: positive: Non-tender, Full ROM, Nml appearance Neurologic/Psychiatric: positive: Oriented x3, CN's nml (2-12), Motor nml, Sensation nml, Mood/affect nml - LABS Result Diagrams: 11/21/16 08:40 11/21/16 08:40 Other Lab Results: Abnormal Lab Results 11/20/16 11/20/16 11/20/16 19:53 19:53 19:53 WBC 11.8 x10^3/uL H x10^3/uL (4.8-10.8) RBC 1.83 10^6/uL L 10^6/uL (4.70-6.10) Hgb 6.3 g/dL L* g/dL (14.0-18.0) Hct 17.7 % L* % (42.0-52.0) MCV 96.4 fL H fL (80.0-94.0) MCH 34.5 pg H pg (27.0-31.0) RDW 16.4 % H % (12.0-15.0) Plt Count 26 10^3/uL L* 10^3/uL (130-450) Myelocytes % 2 % H % ( - 0) Promyelocytes % Blast Cells % 2 % H* % Monocytes # (Manual) 1.1 10^3/uL H 10^3/uL (0.0-1.0) PT INR Sodium 134 mmol/L L mmol/L (135-145) Estimated GFR (MDRD) 71 L (>89) Glucose 113 mg/dL H mg/dL (70-100) Iron % Saturation Ferritin Total Bilirubin Lactate Dehydrogenase Albumin/Globulin Ratio Folate 5.74 ng/mL L ng/mL (5.90 - >24.8) Crossmatch IS Only 11/20/16 11/20/16 11/20/16 20:50 20:50 21:21 WBC RBC Hgb Hct MCV MCH RDW Plt Count Myelocytes % Promyelocytes % Blast Cells % Monocytes # (Manual) PT INR Sodium Estimated GFR (MDRD) Glucose Iron 286 ug/dL H ug/dL (45-182) % Saturation 88 % H % (20-50) Ferritin Total Bilirubin Lactate Dehydrogenase 463 IU/L H IU/L (91-225) Albumin/Globulin Ratio Folate Crossmatch IS Only See Detail 11/20/16 11/21/16 11/21/16 21:21 08:40 08:40 WBC RBC 2.71 10^6/uL L 10^6/uL (4.70-6.10) Hgb 8.7 g/dL L g/dL (14.0-18.0) Hct 24.5 % L % (42.0-52.0) MCV MCH 31.9 pg H pg (27.0-31.0) RDW 15.8 % H % (12.0-15.0) Plt Count 13 10^3/uL L* 10^3/uL (130-450) Myelocytes % 5 % H % ( - 0) Promyelocytes % 3 % H % ( - 0) Blast Cells % 2 % H* % Monocytes # (Manual) 1.8 10^3/uL H 10^3/uL (0.0-1.0) PT 14.7 secs H secs (9.9-12.6) INR 1.3 H (0.8-1.2) Sodium Estimated GFR (MDRD) Glucose Iron % Saturation Ferritin Total Bilirubin Lactate Dehydrogenase Albumin/Globulin Ratio Folate Crossmatch IS Only See Detail 0711/21/16 11/21/16 08:40 08:40 08:40 WBC RBC 2.74 10^6/uL L 10^6/uL (4.70-6.10) Hgb Hct MCV MCH RDW Plt Count Myelocytes % Promyelocytes % Blast Cells % Monocytes # (Manual) PT INR Sodium Estimated GFR (MDRD) Glucose 105 mg/dL H mg/dL (70-100) Iron 265 ug/dL H ug/dL (45-182) % Saturation 90 % H % (20-50) Ferritin Total Bilirubin 1.2 mg/dL H mg/dL (0.2-1.0) Lactate Dehydrogenase Albumin/Globulin Ratio 0.8 L (1.0-2.2) Folate Crossmatch IS Only 11/21/16 11/21/16 08:40 08:40 WBC RBC Hgb Hct MCV MCH RDW Plt Count Myelocytes % Promyelocytes % Blast Cells % Monocytes # (Manual) PT INR Sodium Estimated GFR (MDRD) Glucose Iron % Saturation Ferritin 512.1 ng/mL H ng/mL (23.9-336.2) Total Bilirubin Lactate Dehydrogenase 422 IU/L H IU/L (91-225) Albumin/Globulin Ratio Folate Crossmatch IS Only - FOLLOW UP Follow Up: patient was instructed to followup with PCP in the morning to be referred to oncology in [facility]. He verbally understood and was given the phone number for followup and insurance information regarding authorization for admission. Both and patient were given information and agreed to plan Time spent with patient and spouse was 45 minutes for planning and education"
== END 2016-11-21 18:00 | disposition home or self-care (01) ==
LOC: ED 19:47 → OBS 21:11
PROVIDERS: ADMIT Internal Medicine; ATTEND Nurse Practitioner
DX: D64.9 Anemia, unspecified (principal); D69.6 Thrombocytopenia, unspecified; E87.1 Hypo-osmolality and hyponatremia; E53.8 Deficiency of other specified B group vitamins; I10 Essential (primary) hypertension; D72.829 Elevated white blood cell count, unspecified; K21.9 Gastro-esophageal reflux disease without esophagitis; Z77.120 Contact with and (suspected) exposure to mold (toxic); F17.210 Nicotine dependence, cigarettes, uncomplicated; E66.9 Obesity, unspecified; Z68.31 Body mass index [BMI] 31.0-31.9, adult
CPT/HCPCS: 36415; 36430; 71020; 76700; 80053; 80320; 81003; 82607; 82728; 82746; 83010; 83540; 83615; 83690; 83735; 84100; 84443; 84466; 84484; 85025; 85044; 85610; 86850; 86900; 86901; 86920; 93005; 99217; 99218; 99283; 99284; A9270; P9016; P9035; 81001; 87086

== ENCOUNTER 2016-11-23 16:03 | Emergency (ER) | payer OTHER ==
--- NOTE | 2016-11-23 19:59 | ED Physician Documentation ---
History of Present Illness - Stated complaint Stated Complaint: FATIGUE - Chief complaint Chief Complaint: Neuro - History obtained from History obtained from: Patient - History of Present Illness Timing: Yesterday Pain level max: 0 Pain level now: 0 Radiates to: no raditation Improved by: rest Worsened by: nothing - Additonal information Additional information: discharged 2 days ago from this hospital after stay for correction of anemia, plan is to have bone marrow biposy in f/u. discharged two days ago, feel worsening fatigue and dyspnea Review of Systems Constitutional: reports: Fatigue. 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 : Other HEENT: None Psych: None Musculoskeletal: Fatigue, Other Derm: None - Past Surgical History Past Surgical History: Yes Ortho: Shoulder arthroplasty, Arthroscopic surgery - Present Medications Home Medications: Ambulatory Orders Medication Instructions Recorded Confirmed Loratadine [Claritin] 10 mg PO DAILY 11/20/16 11/23/16 traMADol [Ultram] 50 mg PO Q4-6H 11/20/16 11/23/16 Folic Acid 1 mg PO DAILY #30 tablet 11/21/16 11/23/16 Nicotine 21 mg Patch [Nicoderm] 1 patch TOP DAILY #15 patch 11/21/16 11/23/16 - Allergies Allergies/Adverse Reactions: Allergies Allergy/AdvReac Type Severity Reaction Status Date / Time Penicillins Allergy Unknown Verified 11/20/16 19:53 - Social History Does the pt smoke?: Yes Smoking Status: Current every day smoker Does the pt drink ETOH?: No Does the pt have substance abuse?: No - Immunizations Immunizations are current?: No - POLST Patient has POLST: No POLST Status: Full Code PD ED PE NORMAL - Vitals Vital signs reviewed: Yes - General General: Alert and oriented X 3, No acute distress, Well developed/nourished - HEENT HEENT: PERRL, EOMI, Moist mucous membranes, Pharynx benign - Neck Neck: Supple, no meningeal sign - Cardiac Cardiac: RRR, No murmur - Respiratory Respiratory: No respiratory distress, Clear bilaterally - Abdomen Abdomen: Soft, Non tender - Back Back: No CVA TTP - Derm Derm: Normal color, Warm and dry, No rash - Extremities Extremities: No edema - Neuro Neuro: Alert and oriented X 3, cvor nurse 2-12 intact, No motor deficit, No sensory deficit, Normal speech Results - Vitals Vitals: Oxygen O2 Source Room air - Labs Labs: Laboratory Tests 11/23/16 11/23/16 20:15 20:15 WBC 7.4 RBC 2.70 L Hgb 8.7 L Hct 25.2 L MCV 93.1 MCH 32.1 H MCHC 34.5 RDW 15.4 H Plt Count 37 L MPV 7.8 Neut # 3.0 Lymph # 3.2 [place] # 1.1 H Eos # 0.1 Baso # 0.1 Absolute Nucleated RBC 0.02 Band Neuts % (Manual) Not Reportable Nucleated RBCs 0.3 Differential Comment MANUAL=AUTO DIFF Platelet Estimate DECREASED (<130,000) Platelet Morphology NORMAL APPEARANCE RBC Morph Micro Appear 1+ ANISOCYTOSIS Sodium 136 Potassium 4.2 Chloride 105 Carbon Dioxide 25 Anion Gap 6.0 BUN 22 H Creatinine 0.9 Estimated GFR (MDRD) 89 Glucose 90 Calcium 8.5 PD MEDICAL DECISION MAKING - ED course Complexity details: reviewed results, re-evaluated patient, considered differential, d/w patient, d/w family ED course: today's blood test results are the same (hgb) or better (platelets) than they were on previous visit. D/w patient and he is reassured and ready for discharge home. Departure - Departure Disposition: 01 Home, Self Care Clinical Impression: Thrombocytopenia Absolute anemia Qualifiers: Anemia type: unspecified type Qualified Code(s): D64.9 - Anemia, unspecified Condition: Good Instructions: ED Anemia Type Not Specified Follow-Up: Evan Hunter DO [Primary Care Provider] - Discharge Date/Time: 11/23/16 22:38
[2016-11-23 20:32] LABS: CALCIUM 8.5 mg/dL (8.5-10.3); CREATININE 0.9 mg/dL (0.6-1.2); POTASSIUM 4.2 mmol/L (3.5-5.0)
[2016-11-23 20:38] LABS: BASOPHILS # (AUTO) 0.1 10^3/uL (0.0-0.1); EOSINOPHILS # (AUTO) 0.1 10^3/uL (0.0-0.7); EOSINOPHILS % (AUTO) 1.5 %; HCT - HEMATOCRIT 25.2 % (42.0-52.0); HGB - HEMOGLOBIN 8.7 g/dL (14.0-18.0); LYMPHOCYTES # (AUTO) 3.2 10^3/uL (1.5-3.5); LYMPHOCYTES % (AUTO) 42.7 %; MEAN CORPUSCULAR HEMOGLOBIN 32.1 pg (27.0-31.0); MEAN CORPUSCULAR HGB CONC 34.5 g/dL (32.0-36.0); MEAN CORPUSCULAR VOLUME 93.1 fL (80.0-94.0); MEAN PLATELET VOLUME 7.8 fL (7.4-11.4); MONOCYTES # (AUTO) 1.1 10^3/uL (0.0-1.0); MONOCYTES % (AUTO) 14.3 %; NEUTROPHILS % (AUTO) 40.5 %; NUCLEATED RED BLOOD CELLS AUTO 0.3 /100WBC; RED CELL DISTRIBUTION WIDTH 15.4 % (12.0-15.0); UNCORRECTED WHITE BLOOD COUNT 7.4 x10^3/uL; WHITE BLOOD COUNT 7.4 x10^3/uL (4.8-10.8)
[2016-11-23 21:21] LABS: NP AUTO DIFFERENTIAL? NO; NP MAN DIFFERENTIAL? YES; PLATELET ESTIMATE, MANUAL DECREASED (<130,000) (NORMAL); PLATELET MORPHOLOGY NORMAL APPEARANCE (NORMAL)
[2016-11-23 22:38] VITALS: BP 129/76
== END 2016-11-23 22:38 | disposition home or self-care (01) ==
LOC: ED 16:03
DX: D69.6 Thrombocytopenia, unspecified (principal); D64.9 Anemia, unspecified; F17.200 Nicotine dependence, unspecified, uncomplicated
CPT/HCPCS: 36415; 80048; 85025; 99283

== ENCOUNTER 2017-01-17 22:59 | Emergency (ER) | payer OTHER ==
[2017-01-17 23:10] VITALS: BP 155/69
--- NOTE | 2017-01-17 23:34 | ED Physician Documentation ---
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 : Other HEENT: None Psych: None Musculoskeletal: Fatigue, Other Derm: None Other Past Medical History: Leukemia - Past Surgical History Past Surgical History: Yes Ortho: Shoulder arthroplasty, Arthroscopic surgery - Present Medications Home Medications: Ambulatory Orders Medication Instructions Recorded Confirmed Loratadine [Claritin] 10 mg PO DAILY 11/20/16 12/03/16 traMADol [Ultram] 50 mg PO Q4-6H 11/20/16 12/03/16 Folic Acid 1 mg PO DAILY #30 tablet 11/21/16 12/03/16 Nicotine 21 mg Patch [Nicoderm] 1 patch TOP DAILY #15 patch 11/21/16 12/03/16 - Allergies Allergies/Adverse Reactions: Allergies Allergy/AdvReac Type Severity Reaction Status Date / Time Penicillins Allergy Unknown Verified 01/17/17 23:10 - Social History Does the pt smoke?: Yes Smoking Status: Current every day smoker Does the pt drink ETOH?: No Does the pt have substance abuse?: No - Immunizations Immunizations are current?: No - POLST Patient has POLST: No POLST Status: Full Code Results - Vitals Vitals: Vital Signs - 24 hr 01/17/17 23:07 Temperature 36.8 C Heart Rate 83 Respiratory 17 Rate Blood Pressure 155/69 H O2 Saturation 99 Oxygen O2 Source Room air - Labs Labs: Laboratory Tests 01/18/17 01/18/17 00:12 00:12 D-Dimer 1094.8 H Sodium 136 Potassium 4.1 Chloride 103 Carbon Dioxide 26 Anion Gap 7.0 BUN 17 Creatinine 0.9 Estimated GFR (MDRD) 89 Glucose 101 H Calcium 9.0 PD MEDICAL DECISION MAKING - ED course ED course: SEE PAPER CHART ([employer])
[2017-01-18 00:31] LABS: CREATININE 0.9 mg/dL (0.6-1.2); POTASSIUM 4.1 mmol/L (3.5-5.0)
--- NOTE | 2017-01-18 00:40 | XRAY Preliminary Report ---
Exam: XR Chest 2 View PA/LAT IMPRESSION: 1. No consolidation. Probable superimposed bronchitis or reactive airway disease. 2. No pneumothorax or effusion. [facility] SITE ID: [id number]
[2017-01-18] MEDS ORDERED: IOPAMIDOL-300 100 ML VIAL ONE (02:06)
--- NOTE | 2017-01-18 03:22 | XRAY Report ---
EXAM: CHEST RADIOGRAPHY EXAM DATE: 01/18/2017 12:23 AM. CLINICAL HISTORY: Left chest pain. COMPARISON: 11/20/2016. TECHNIQUE: 2 views. FINDINGS: Lungs/Pleura: Perihilar bronchial wall thickening is noted. No new consolidation, effusion or pneumot horax. Mediastinum: Heart and mediastinal contours are unremarkable. Other: None. IMPRESSION: 1. No consolidation. Probable superimposed bronchitis or reactive airway disease. 2. No pneumothorax or effusion. [facility] Referring Provider Line: [phone] SITE ID: [id number]
--- NOTE | 2017-01-19 13:07 | CT Report ---
EXAM: CT ANGIOGRAM CHEST EXAM DATE: 01/18/2017 02:23 AM. CLINICAL HISTORY: Left-sided chest pain COMPARISON: None. TECHNIQUE: Routine helical imaging was performed through the chest in the pulmonary arterial phase. I V Contrast: 80 mL Isovue-300. Reconstructions: Coronal 3-D MIP reconstructions.Sagittal and coronal. In accordance with CT protocol optimization, one or more of the following dose reduction techniques w ere utilized for this exam: automated exposure control, adjustment of mA and/or KV based on patient s ize, or use of iterative reconstructive technique. FINDINGS: Pulmonary Arteries: There is adequate opacification through the segmental arteries. No evidence for a cute or chronic pulmonary emboli. Lungs and Pleura: No significant consolidation. There is a small fissural lymph node within the anter ior inferior portion of the right minor fissure. Mild bilateral lower lobe dependent atelectatic gomez ge is noted. Site bilateral apical posterior subpleural cystic change, nonspecific. Central Airways: Visualized central airways are without suspicious filling defects. Chest Wall: No significant abnormality. Thyroid: No significant abnormality. Mediastinum: Increased number of scattered small mediastinal lymph nodes are present, not considered pathologic based on size criteria. These are nonspecific. Heart: Normal in size. No significant pericardial effusion. Aorta: Normal caliber. Upper Abdomen: No significant abnormality. Bones: No suspicious bony lesions evident. There is moderate multilevel degenerative change within th e spine. IMPRESSION: 1. No evidence of pulmonary embolism. 2. No acute pulmonary parenchymal abnormality. [facility] Referring Provider Line: [phone] SITE ID: [id number]
--- NOTE | 2017-01-19 13:07 | CT Preliminary Report ---
Exam: CT Chest Angio (PE) IMPRESSION: 1. No evidence of pulmonary embolism. 2. No acute pulmonary parenchymal abnormality. [facility] SITE ID: [id number]
== END 2017-01-18 03:45 | disposition home or self-care (01) ==
LOC: ED 22:59
DX: R07.9 Chest pain, unspecified (principal); R06.02 Shortness of breath; R05 Cough; R11.2 Nausea with vomiting, unspecified; C95.90 Leukemia, unspecified not having achieved remission
CPT/HCPCS: 36415; 71020; 71275; 80048; 84484; 85379; 93005; 99281; 99284; Q9967; 80053; 83690; 99283

== ENCOUNTER 2017-02-02 17:37 | Outpatient (CLI) | payer OTHER | END 2017-02-02 17:38 | disposition critical access hospital (66) | LOC: EMS 17:37 | PROVIDERS: ATTEND Surgery | DX: R07.81 Pleurodynia (principal) | CPT/HCPCS: A0425; A0429 ==

== ENCOUNTER 2017-02-02 17:58 | Emergency (ER) | payer OTHER ==
[2017-02-02] MEDS ORDERED: MORPHINE 10 MG/ML VIAL IVP STA (18:23)
--- NOTE | 2017-02-02 18:26 | ED Physician Documentation ---
PD HPI CHEST PAIN - Stated complaint Stated Complaint: CP - Chief complaint Chief Complaint: Cardiac - History obtained from History obtained from: Patient, EMS - History of Present Illness Timing - onset: Other (51-year-old gentleman with relatively recent diagnosis of myelodysplastic syndrome, got his second infusion of chemotherapy at the [facility] today. He has been transfusion dependent because of recurrent anemia and he has had what he estimates to be 15 transfusions since his diagnosis in October. Today he was standing at the kitchen counter not doing anything specific when he had sudden severe sharp right chest wall pain which is worse with deep breathing but not exacerbated by motion of the right arm. There is no increased shortness of breath with this and no increase in pedal edema or chronic venous stasis changes from his varicose veins. He has no personal history of DVT or PE, no heart problems. Has recently normal echocardiogram and the workup for his chemotherapy.) Review of Systems Constitutional: denies: Fever, Chills Cardiac: reports: Chest pain / pressure. 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 : Other HEENT: None Psych: None Musculoskeletal: Fatigue, Other Derm: None Other Past Medical History: Mylodisplastic syndrome - Past Surgical History Past Surgical History: Yes Ortho: Shoulder arthroplasty, Arthroscopic surgery - Present Medications Home Medications: Ambulatory Orders Medication Instructions Recorded Confirmed Loratadine [Claritin] 10 mg PO DAILY 11/20/16 02/02/17 Nicotine 21 mg Patch [Nicoderm] 1 patch TOP DAILY #15 patch 11/21/16 02/02/17 Allopurinol 300 mg PO DAILY 02/02/17 02/02/17 Cyclobenzaprine HCl 5 mg PO DAILY 02/02/17 02/02/17 Oxycodone HCl/Acetaminophen 1 - 2 tab PO Q4H PRN #10 tablet 02/02/17 [Percocet 5-325 mg Tablet] oxyCODONE [Roxicodone] 5 mg pe PO PRN PRN 02/02/17 02/02/17 - Allergies Allergies/Adverse Reactions: Allergies Allergy/AdvReac Type Severity Reaction Status Date / Time Penicillins Allergy Unknown Verified 02/02/17 18:04 - Social History Does the pt smoke?: Yes Smoking Status: Current every day smoker Does the pt drink ETOH?: No Does the pt have substance abuse?: No - Family History Family history: reports: Non contributory - Immunizations Immunizations are current?: No - POLST Patient has POLST: No POLST Status: Full Code PD ED PE NORMAL - Vitals Vital signs reviewed: Yes - General General: Alert and oriented X 3, No acute distress, Other (Uncomfortable, winces with deep breathing) - HEENT HEENT: PERRL, EOMI - Neck Neck: Supple, no meningeal sign, No bony TTP - Cardiac Cardiac: RRR, No murmur - Respiratory Respiratory: No respiratory distress, Clear bilaterally - Abdomen Abdomen: Soft, Non tender - Back Back: No CVA TTP, No spinal TTP - Derm Derm: Normal color, Warm and dry - Extremities Extremities: Other (Venous stasis changes of both legs with varicose veins, no asymmetry or calf tenderness.) - Neuro Neuro: Alert and oriented X 3, Normal speech - Psych Psych: Normal mood, Normal affect Results - Vitals Vitals: Vital Signs - 24 hr 02/02/17 02/02/17 02/02/17 18:01 19:23 20:14 Temperature 37.5 C Heart Rate 91 77 81 Respiratory 22 15 20 Rate Blood Pressure 141/61 H 130/60 120/63 O2 Saturation 98 94 Oxygen O2 Source Room air - EKG (time done) 1805 Rate: Rate (enter#) (85) Rhythm: NSR [place]: Normal Intervals: Normal [place] QRS: Normal Ischemia: Normal ST segments Computer interpretation: Agree with computer - Labs Labs: Laboratory Tests 02/02/17 02/02/17 02/02/17 18:35 18:35 18:35 WBC 5.2 RBC 3.19 L Hgb 9.7 L Hct 28.4 L MCV 89.0 MCH 30.3 MCHC 34.1 RDW 16.6 H Plt Count 45 L MPV 8.7 Neut # 3.5 Lymph # 1.4 L [place] # 0.1 Eos # 0.2 Baso # 0.1 Absolute Nucleated RBC 0.01 Nucleated RBC % 0.3 WBC Morphology 2+ HYPERSEG NEUT Platelet Estimate DECREASED (<130,000) Platelet Morphology 1+ GIANT PLATELETS RBC Morph Micro Appear 1+ POLYCHROMASIA Sodium 134 L Potassium 4.0 Chloride 99 L Carbon Dioxide 27 Anion Gap 8.0 BUN 20 Creatinine 1.1 Estimated GFR (MDRD) 71 L Glucose 105 H Calcium 9.6 Total Bilirubin 0.6 AST 32 ALT 26 Alkaline Phosphatase 61 Troponin I < 0.04 Total Protein 8.0 Albumin 3.5 Globulin 4.5 H Albumin/Globulin Ratio 0.8 L Lipase 20 L - Rads (name of study) CTA Chest Radiology: EMP read contemporaneously (No PE or airspace disease, mild left hilar adenopathy) PD MEDICAL DECISION MAKING - ED course ED course: 51-year-old gentleman presents with acute pleuritic right-sided chest pain in the setting of ongoing cancer and chemotherapy, chemotherapy is at the high end of the differential diagnosis and is not found on CT. His EKG is nonischemic and the pain would be atypical for anginal symptoms, felt much better after medications here. Departure - Departure Disposition: ED Transfer to [facility] Clinical Impression: Atypical chest pain, Myelodysplastic syndrome Condition: Good Record reviewed to determine appropriate education?: Yes Instructions: ED Chest Pain Atypical Unkn Cause Prescriptions: Oxycodone HCl/Acetaminophen [Percocet 5-325 mg Tablet] 1 - 2 tab PO Q4H PRN #10 tablet PRN Reason: Pain Comments: Call your doctor to arrange a follow-up appointment, make the next available appointment. In the interim, return anytime if worse or if new symptoms develop.
[2017-02-02] MEDS ORDERED: IOPAMIDOL-300 100 ML VIAL IVP ONE (18:49)
[2017-02-02] MEDS ORDERED: IOPAMIDOL-300 100 ML VIAL ONE (18:49)
[2017-02-02 18:52] LABS: BASOPHILS # (AUTO) 0.1 10^3/uL (0.0-0.1); BASOPHILS % (AUTO) 1.7 %; EOSINOPHILS # (AUTO) 0.2 10^3/uL (0.0-0.7); EOSINOPHILS % (AUTO) 2.9 %; HCT - HEMATOCRIT 28.4 % (42.0-52.0); HGB - HEMOGLOBIN 9.7 g/dL (14.0-18.0); LYMPHOCYTES # (AUTO) 1.4 10^3/uL (1.5-3.5); LYMPHOCYTES % (AUTO) 26.7 %; MEAN CORPUSCULAR HEMOGLOBIN 30.3 pg (27.0-31.0); MEAN CORPUSCULAR HGB CONC 34.1 g/dL (32.0-36.0); MEAN PLATELET VOLUME 8.7 fL (7.4-11.4); MONOCYTES # (AUTO) 0.1 10^3/uL (0.0-1.0); MONOCYTES % (AUTO) 1.6 %; NEUTROPHILS # (AUTO) 3.5 10^3/uL (1.5-6.6); NEUTROPHILS % (AUTO) 67.1 %; NUCLEATED RED BLOOD CELLS AUTO 0.3 /100WBC; RED BLOOD COUNT 3.19 10^6/uL (4.70-6.10); RED CELL DISTRIBUTION WIDTH 16.6 % (12.0-15.0); UNCORRECTED WHITE BLOOD COUNT 5.5 x10^3/uL; WHITE BLOOD COUNT 5.2 x10^3/uL (4.8-10.8)
[2017-02-02] MEDS ORDERED: MORPHINE 10 MG/ML VIAL ONE (18:53)
[2017-02-02 18:55] LABS: ALBUMIN/GLOBULIN RATIO 0.8 (1.0-2.2); BILIRUBIN,TOTAL 0.6 mg/dL (0.2-1.0); CALCIUM 9.6 mg/dL (8.5-10.3); CREATININE 1.1 mg/dL (0.6-1.2)
[2017-02-02 19:04] LABS: PLATELET ESTIMATE, MANUAL DECREASED (<130,000) (NORMAL); PLATELET MORPHOLOGY 1+ GIANT PLATELETS (NORMAL); WBC MORPHOLOGY (MULTIPLE) 2+ HYPERSEG NEUT (NORMAL)
--- NOTE | 2017-02-02 20:03 | CT Preliminary Report ---
Exam: CT CHEST ANGIO (PE) IMPRESSION: 1. No pulmonary embolism or acute airspace disease. 2. Mild left hilar lymphadenopathy the etiology and clinical significance of which is uncertain. [facility] S[facility]: [id number]
--- NOTE | 2017-02-02 20:05 | CT Report ---
EXAM: CT ANGIOGRAM CHEST EXAM DATE: 02/02/2017 07:24 PM. CLINICAL HISTORY: Right-sided chest pain. COMPARISON: None. TECHNIQUE: Routine helical imaging was performed through the chest in the pulmonary arterial phase. I V Contrast: 80 mL Isovue 300. Reconstructions: Coronal 3-D MIP reconstructions.Sagittal and coronal. In accordance with CT protocol optimization, one or more of the following dose reduction techniques w ere utilized for this exam: automated exposure control, adjustment of mA and/or KV based on patient s ize, or use of iterative reconstructive technique. FINDINGS: Pulmonary Arteries: Diagnostic quality: Adequate through the segmental arteries. No evidence for acute or chronic pulmona ry emboli. RV/LV is within normal limits. There is no interventricular septal bowing. There is no reflux of cont rast material in the IVC. Lungs/Pleura: No consolidation, nodules, or edema. No effusions or pneumothorax. Mediastinum: Normal heart size. No pericardial effusion. There are several mildly enlarged left hilar lymph nodes measuring up to 1.1 cm. Thoracic Aorta: Unremarkable. Upper Abdomen: Unremarkable. Other: None. IMPRESSION: 1. No pulmonary embolism or acute airspace disease. 2. Mild left hilar lymphadenopathy the etiology and clinical significance of which is uncertain. [facility] Referring Provider Line: [phone] SITE ID: [id number]
[2017-02-02 20:16] VITALS: BP 120/63
== END 2017-02-02 20:54 | disposition home or self-care (01) ==
LOC: EDUNIT# → ED 17:58
DX: R07.89 Other chest pain (principal); D46.9 Myelodysplastic syndrome, unspecified; K21.9 Gastro-esophageal reflux disease without esophagitis; I83.93 Asymptomatic varicose veins of bilateral lower extremities; F17.200 Nicotine dependence, unspecified, uncomplicated
CPT/HCPCS: 36415; 71275; 80053; 83690; 84484; 85025; 93005; 96374; 99284; Q9967

== ENCOUNTER 2017-05-09 19:50 | Emergency (ER) | payer OTHER ==
[2017-05-09] MEDS ORDERED: SODIUM CHLORIDE 0.9% 1,000 ML IV ONE (20:10)
[2017-05-09] MEDS ORDERED: HYDROmorphone 1 MG/ML SYRINGE IVP STA ×2 (20:11→21:23)
--- NOTE | 2017-05-09 20:14 | ED Physician Documentation ---
PD HPI CHEST PAIN - Stated complaint Stated Complaint: BACK/ARM PX - Chief complaint Chief Complaint: Cardiac - History obtained from History obtained from: Patient, Family - History of Present Illness Timing - onset: Yesterday (51-year-old gentleman with history of myelodysplastic syndrome undergoing chemotherapy who has had progressive left scapular pain since yesterday with a mildly productive cough but no fevers.) Review of Systems Ten Systems: 10 systems reviewed and negative Constitutional: denies: Fever, Chills Nose: denies: Rhinorrhea / runny nose, Congestion Cardiac: denies: Chest pain / pressure, Palpitations Respiratory: reports: Dyspnea, Cough PD PAST MEDICAL HISTORY - Past Medical History Past Medical History: Yes Cardiovascular: None Respiratory: None Neuro: None Endocrine/Autoimmune: None GI: GERD 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 : Other HEENT: None Psych: None Musculoskeletal: Gout, Fatigue, Other Derm: None Other Past Medical History: AML - Past Surgical History Past Surgical History: Yes Ortho: Shoulder arthroplasty, Arthroscopic surgery - Present Medications Home Medications: Ambulatory Orders Medication Instructions Recorded Confirmed Allopurinol 300 mg PO DAILY 02/02/17 05/09/17 Cyclobenzaprine HCl 5 mg PO DAILY PRN 02/02/17 05/09/17 oxyCODONE [Roxicodone] 5 mg pe PO PRN PRN 02/02/17 05/09/17 Nicotine Polacrilex [Nicotine 4 mg BC DAILY PRN 03/28/17 05/09/17 Lozenge] Azithromycin [Zithromax] 250 mg PO DAILY #4 tablet 05/09/17 Ondansetron [Ondansetron Odt] 8 mg PO TID 05/09/17 05/09/17 Oxycodone HCl/Acetaminophen 1 - 2 tab PO Q4H PRN #10 tablet 05/09/17 [Percocet 5-325 mg Tablet] - Allergies Allergies/Adverse Reactions: Allergies Allergy/AdvReac Type Severity Reaction Status Date / Time Penicillins Allergy Unknown Verified 05/09/17 19:58 - Social History Does the pt smoke?: Yes Smoking Status: Current every day smoker Does the pt drink ETOH?: No Does the pt have substance abuse?: No - Immunizations Immunizations are current?: No - POLST Patient has POLST: No POLST Status: Full Code PD ED PE NORMAL - Vitals Vital signs reviewed: Yes - General General: Alert and oriented X 3, No acute distress - HEENT HEENT: PERRL, EOMI - Neck Neck: Supple, no meningeal sign, No bony TTP - Cardiac Cardiac: RRR, No murmur - Respiratory Respiratory: No respiratory distress, Clear bilaterally - Abdomen Abdomen: Non tender - Back Back: No spinal TTP, Other (He is quite tender to the muscles in the area of the left rhomboid and infrascapular region) - Extremities Extremities: Other (Venous stasis changes without asymmetry or calf tenderness.) - Neuro Neuro: Alert and oriented X 3, Normal speech Results - Vitals Vitals: Vital Signs - 24 hr 05/09/17 05/09/17 19:54 21:42 Temperature 37.4 C Heart Rate 78 73 Respiratory 18 18 Rate Blood Pressure 148/83 H 161/90 H O2 Saturation 99 96 Oxygen O2 Source Room air - EKG (time done) 2001 Rate: Rate (enter#) (70) Rhythm: NSR [place]: Normal Intervals: Normal IN QRS: Normal Ischemia: Normal ST segments Computer interpretation: Agree with computer - Labs Labs: Laboratory Tests 05/09/17 05/09/17 05/09/17 20:26 20:26 20:26 WBC 11.2 H RBC 4.68 L Hgb 14.2 Hct 42.1 MCV 90.0 MCH 30.3 MCHC 33.7 RDW 15.3 H Plt Count 220 MPV 7.7 Neut # Not Reportable Lymph # Not Reportable Stone # Not Reportable Eos # Not Reportable Baso # Not Reportable Absolute Nucleated RBC Not Reportable Total Counted 100 Band Neuts % (Manual) 0 Reactive Lymphs % (Man) 6 Abnorm Lymph % (Manual) 0 Nucleated RBC % Not Reportable Neutrophils # (Manual) 6.4 Lymphocytes # (Manual) 3.8 H Monocytes # (Manual) 0.6 Eosinophils # (Manual) 0.4 Basophils # (Manual) 0.0 Manual Slide Review Indicated WBC Morphology 1+ REACTIVE LYMPHS Platelet Estimate NORMAL (130-450,000) Platelet Morphology NORMAL APPEARANCE RBC Morph Micro Appear NORMAL APPEARANCE Sodium 138 Potassium 4.0 Chloride 108 Carbon Dioxide 24 Anion Gap 6.0 BUN 18 Creatinine 0.6 Estimated GFR (MDRD) 142 Glucose 111 H Calcium 8.8 Total Bilirubin 0.3 AST 13 ALT 12 Alkaline Phosphatase 82 Troponin I < 0.04 Total Protein 7.4 Albumin 3.8 Globulin 3.6 Albumin/Globulin Ratio 1.1 Lipase 18 L Influenza A (Rapid) Influenza B (Rapid) Influenza Types A,B Ag 05/09/17 20:26 WBC RBC Hgb Hct MCV MCH MCHC RDW Plt Count MPV Neut # Lymph # Stone # Eos # Baso # Absolute Nucleated RBC Total Counted Band Neuts % (Manual) Reactive Lymphs % (Man) Abnorm Lymph % (Manual) Nucleated RBC % Neutrophils # (Manual) Lymphocytes # (Manual) Monocytes # (Manual) Eosinophils # (Manual) Basophils # (Manual) Manual Slide Review WBC Morphology Platelet Estimate Platelet Morphology RBC Morph Micro Appear Sodium Potassium Chloride Carbon Dioxide Anion Gap BUN Creatinine Estimated GFR (MDRD) Glucose Calcium Total Bilirubin AST ALT Alkaline Phosphatase Troponin I Total Protein Albumin Globulin Albumin/Globulin Ratio Lipase Influenza A (Rapid) Negative Influenza B (Rapid) Negative Influenza Types A,B Ag - - Rads (name of study) CTA Chest Radiology: EMP read contemporaneously (No PE, stable chronic findings and left lower lobe pneumonia.) PD MEDICAL DECISION MAKING - ED course ED course: 51-year-old gentleman with myelodysplastic syndrome presents with left posterior chest pain, cough, shortness of breath. Differential diagnosis is broad, given the nonischemic EKG and negative single troponin coronary disease is very unlikely. He does have left sided pneumonia and unchanged pulmonary nodules. Departure - Departure Disposition: 01 Home, Self Care Clinical Impression: Atypical chest pain, Tobacco abuse Pneumonia Qualifiers: Pneumonia type: due to unspecified organism Laterality: left Lung location: lower lobe of lung Qualified Code(s): J18.1 - Lobar pneumonia, unspecified organism Condition: Good Record reviewed to determine appropriate education?: Yes Instructions: Pneumonia Dc Prescriptions: Azithromycin [Zithromax] 250 mg PO DAILY #4 tablet Oxycodone HCl/Acetaminophen [Percocet 5-325 mg Tablet] 1 - 2 tab PO Q4H PRN #10 tablet PRN Reason: Pain Comments: Follow-up with your pain management doctor tomorrow. Return if worse. You will need a repeat chest CT in 3 months to reassess the pneumonia, and small pulmonary nodules. Your blood pressure was elevated today on check into the emergency department. This does not mean that you have hypertension, it is a common phenomenon to come to the emergency department and have elevated blood pressure. I recommend that you see your primary care physician within the week to have it rechecked when you are feeling better. Do not drink or drive while taking narcotic pain medication. Note that many narcotic pain relievers also contain Tylenol/acetaminophen. Please ensure that your total dose of acetaminophen from all sources does not exceed 3 g (3000 mg) per day. You may get constipated while on this medication. Take a stool softener such as Colace twice a day while you are on it. Also add an [id number]-yzz-fpnbrad laxative such as senna or MiraLAX on any day that you do not have a bowel movement. If you received a narcotic pain medication or sedative while in the emergency department, do not drive for the next 24 hours.
[2017-05-09] MEDS ORDERED: IOPAMIDOL-300 100 ML VIAL ONE (20:30)
[2017-05-09 20:40] LABS: BASOPHILS % (AUTO) 2.1 %; EOSINOPHILS % (AUTO) 9.5 %; HGB - HEMOGLOBIN 14.2 g/dL (14.0-18.0); LYMPHOCYTES % (AUTO) 26.7 %; MEAN CORPUSCULAR HEMOGLOBIN 30.3 pg (27.0-31.0); MEAN CORPUSCULAR HGB CONC 33.7 g/dL (32.0-36.0); MEAN PLATELET VOLUME 7.7 fL (7.4-11.4); MONOCYTES % (AUTO) 6.1 %; NEUTROPHILS % (AUTO) 55.6 %; PLT - PLATELET COUNT 220 10^3/uL (130-450); RED BLOOD COUNT 4.68 10^6/uL (4.70-6.10); RED CELL DISTRIBUTION WIDTH 15.3 % (12.0-15.0); WHITE BLOOD COUNT 11.2 x10^3/uL (4.8-10.8)
[2017-05-09 20:49] LABS: ABNORMAL LYMPHS % (MANUAL) 0 %; BAND NEUTROPHILS % (MANUAL) 0 %
[2017-05-09 20:51] LABS: ALBUMIN 3.8 g/dL (3.2-5.5); ALBUMIN/GLOBULIN RATIO 1.1 (1.0-2.2); BILIRUBIN,TOTAL 0.3 mg/dL (0.2-1.0); CALCIUM 8.8 mg/dL (8.5-10.3); CREATININE 0.6 mg/dL (0.6-1.2); TOTAL PROTEIN 7.4 g/dL (6.7-8.2)
[2017-05-09 20:58] LABS: EOSINOPHILS # (MANUAL) 0.4 10^3/uL (0-0.7); LYMPHOCYTES # (MANUAL) 3.8 10^3/uL (1.5-3.5); LYMPHOCYTES % (MANUAL) 28 %; MONOCYTES # (MANUAL) 0.6 10^3/uL (0.0-1.0); NEUTROPHILS # (MANUAL) 6.4 10^3/uL (1.5-6.6); NEUTROPHILS % (MANUAL) 57 %
[2017-05-09 20:59] LABS: PLATELET ESTIMATE, MANUAL NORMAL (130-450,000) (NORMAL); PLATELET MORPHOLOGY NORMAL APPEARANCE (NORMAL); RBC MORPHOLOGY (MULTIPLE) NORMAL APPEARANCE (NORMAL)
[2017-05-09] MEDS ORDERED: IOPAMIDOL-300 100 ML VIAL IVP ONE (21:27)
--- NOTE | 2017-05-09 21:59 | CT Preliminary Report ---
Exam: CT CHEST ANGIO (PE) IMPRESSION: 1. No evidence for pulmonary emboli. 2. Right hilar lymphadenopathy 1.1 cm, measures slightly smaller. Left hilar lymphadenopathy measurin g 1 cm appears unchanged. Other prominent bilateral hilar lymph nodes again noted. Etiology or clinic al significance uncertain. 3. Couple of pulmonary nodules at the right middle lobe abutting the right minor fissure measuring 5 mm, and not significantly changed for 3 months. A three-month follow-up chest CT could be obtained to confirm six-month stability as per Fleischner Society criteria. Mild paraseptal emphysema. 4. New small focal air space disease seen in the superior segment left lower lobe, could represent pn eumonia. 5. Left posterior tiny pleural effusion versus thickening, mildly increased. 6. Otherwise, as above. [facility] SITE ID: [id number]
--- NOTE | 2017-05-09 22:05 | CT Report ---
EXAM: CT ANGIOGRAM CHEST EXAM DATE: 05/09/2017 09:32 PM. CLINICAL HISTORY: Chest/back pain. COMPARISON: CTA chest 02/02/2017. TECHNIQUE: Routine helical imaging was performed through the chest in the pulmonary arterial phase. I V Contrast: 80 mL Isovue 300. Reconstructions: Coronal 3-D MIP reconstructions.Sagittal and coronal. In accordance with CT protocol optimization, one or more of the following dose reduction techniques w ere utilized for this exam: automated exposure control, adjustment of mA and/or KV based on patient s ize, or use of iterative reconstructive technique. FINDINGS: Pulmonary Arteries: No evidence for pulmonary emboli. Mediastinum: Right internal jugular dual-lumen hemodialysis catheter again noted. Normal heart size. Right hilar lymphadenopathy 1.1 cm, measures slightly smaller. Left hilar lymphadenopathy measuring 1 cm appears unchanged. Other prominent bilateral hilar lymph nodes again noted. No thoracic aortic aneurysm or dissection. Upper abdomen: No acute findings. Lungs/Pleura: Mild paraseptal emphysema in the lung apices again noted. New small focal air space dis ease seen in the superior segment left lower lobe, could represent pneumonia. Mild dependent atelecta sis in the lower lobes versus scarring. Left posterior tiny pleural effusion versus thickening, mildl y increased. Minimal left base consolidation most likely atelectasis. No pneumothorax. Couple of nodules at the right middle lobe abutting the right minor fissure measuring 5 mm, and not s ignificantly changed. Minimal consolidation at the lingula is new, probably atelectasis. No acute bone findings. IMPRESSION: 1. No evidence for pulmonary emboli. 2. Right hilar lymphadenopathy 1.1 cm, measures slightly smaller. Left hilar lymphadenopathy measurin g 1 cm appears unchanged. Other prominent bilateral hilar lymph nodes again noted. Etiology or clinic al significance uncertain. 3. Couple of pulmonary nodules at the right middle lobe abutting the right minor fissure measuring 5 mm, and not significantly changed for 3 months. A three-month follow-up chest CT could be obtained to confirm six-month stability as per Fleischner Society criteria. Mild paraseptal emphysema. 4. New small focal air space disease seen in the superior segment left lower lobe, could represent pn eumonia. 5. Left posterior tiny pleural effusion versus thickening, mildly increased. 6. Otherwise, as above. [facility] Referring Provider Line: [phone] SITE ID: [id number]
[2017-05-09] MEDS ORDERED: oxyCODONE/ACET 5/325 Prepack 4 PO STA (22:13)
[2017-05-09] MEDS ORDERED: levoFLOXacin 250 MG TABLET PO STA (22:13)
[2017-05-09] MEDS ORDERED: AZITHROMYCIN 250 MG TABLET PO STA (22:24)
[2017-05-09 22:26] VITALS: BP 142/79
== END 2017-05-09 22:33 | disposition home or self-care (01) ==
LOC: ED 19:50
DX: R07.89 Other chest pain (principal); J18.9 Pneumonia, unspecified organism; R03.0 Elevated blood-pressure reading, without diagnosis of hypertension; F17.200 Nicotine dependence, unspecified, uncomplicated; D46.9 Myelodysplastic syndrome, unspecified; Z92.21 Personal history of antineoplastic chemotherapy
CPT/HCPCS: 36415; 71275; 80053; 83690; 84484; 85025; 87275; 87276; 93005; 96361; 96374; 96375; 96376; 99284; A9270; J1170; Q9967

== ENCOUNTER 2017-11-24 12:59 | Outpatient (CLI) | payer SELFPAY | END 2017-11-24 13:00 | disposition home or self-care (01) | LOC: LAB 12:59 | DX: Z01.89 Encounter for other specified special examinations (principal) | CPT/HCPCS: 36415 ==

== ENCOUNTER 2017-12-09 13:16 | Outpatient (CLI) | payer SELFPAY | END 2017-12-09 13:17 | disposition home or self-care (01) | LOC: LAB 13:16 | DX: Z01.89 Encounter for other specified special examinations (principal) | CPT/HCPCS: 36415 ==

== ENCOUNTER 2018-01-11 09:26 | Outpatient (CLI) | payer SELFPAY | END 2018-01-11 09:27 | disposition home or self-care (01) | LOC: LAB 09:26 | DX: Z01.89 Encounter for other specified special examinations (principal) | CPT/HCPCS: 36415 ==

== ENCOUNTER 2018-01-25 09:55 | Outpatient (CLI) | payer SELFPAY | END 2018-01-25 09:56 | disposition home or self-care (01) | LOC: LAB 09:55 | DX: Z01.89 Encounter for other specified special examinations (principal) | CPT/HCPCS: 36415 ==

== ENCOUNTER 2018-02-06 12:00 | Outpatient (CLI) | payer SELFPAY | END 2018-02-06 12:01 | disposition home or self-care (01) | LOC: LAB 12:00 | DX: Z01.89 Encounter for other specified special examinations (principal) | CPT/HCPCS: 36415 ==

== ENCOUNTER 2018-03-01 11:57 | Outpatient (CLI) | payer SELFPAY | END 2018-03-01 11:58 | disposition home or self-care (01) | LOC: LAB 11:57 | DX: Z01.89 Encounter for other specified special examinations (principal) | CPT/HCPCS: 36415 ==

== ENCOUNTER 2018-03-22 11:20 | Outpatient (CLI) | payer SELFPAY | END 2018-03-22 11:21 | disposition home or self-care (01) | LOC: LAB 11:20 | DX: Z01.89 Encounter for other specified special examinations (principal) | CPT/HCPCS: 36415 ==

== ENCOUNTER 2018-04-06 08:25 | Outpatient (CLI) | payer SELFPAY | END 2018-04-06 08:26 | disposition home or self-care (01) | LOC: LAB 08:25 | DX: Z01.89 Encounter for other specified special examinations (principal) | CPT/HCPCS: 36415 ==

== ENCOUNTER 2019-02-04 23:20 | Emergency (ER) | payer SELFPAY ==
--- NOTE | 2019-02-04 23:47 | ED Physician Documentation ---
PD HPI BACK PAIN - Stated complaint Stated Complaint: BACK PX, SOA UQP - Chief complaint Chief Complaint: Back Pain - History obtained from History obtained from: Patient - History of Present Illness Timing - onset: Today Timing - duration: Hours Timing - details: Abrupt onset, Still present, Waxing and waning Location: Mid, Right (pain around the lower ribs area right back, wraps around to front of chest/upper abd. Worse with breathing. Has had some cough with yellow sputum for few days. No fevers. Pain onset today.) Quality: Pain, Spasm. No: Tearing, Aching Associated symptoms: No: Fever, Weakness, Numbness Worsened by: Movement, Other (deep breathing) Contributing factors: Other (coughing). No: Lifting, Twisting Similar symptoms before: No diagnosis (had similar last year, lasted days, wi thout specific Dx.) Recently seen: Not recently seen Review of Systems Constitutional: reports: Fatigue. denies: Fever, Chills, Myalgias Nose: denies: Rhinorrhea / runny nose, Congestion Throat: denies: Sore throat Cardiac: reports: Chest pain / pressure. denies: Palpitations Respiratory: reports: Cough. denies: Dyspnea, Wheezing GI: reports: Nausea. 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 : Other HEENT: None Psych: None Musculoskeletal: Gout, Fatigue, Chronic back pain, Other Derm: None - Past Surgical History Past Surgical History: Yes Ortho: Shoulder arthroplasty, Arthroscopic surgery - Present Medications Home Medications: Ambulatory Orders Medication Instructions Recorded Confirmed Cyclobenzaprine HCl 5 mg PO DAILY PRN 02/02/17 02/04/19 oxyCODONE [Roxicodone] 5 mg pe PO PRN PRN 02/02/17 02/04/19 Nicotine Polacrilex [Nicotine 4 mg BC DAILY PRN 03/28/17 02/04/19 Lozenge] Oxycodone HCl/Acetaminophen 1 - 2 tab PO Q4H PRN #10 tablet 05/09/17 [Percocet 5-325 mg Tablet] Sulfamethox/Trimeth 800/160 1 each PO BID #14 tablet 02/05/19 [Bactrim Ds 800/160] dexAMETHasone [Decadron] 4 mg PO DAILY #7 tablet 02/05/19 - Allergies Allergies/Adverse Reactions: Allergies Allergy/AdvReac Type Severity Reaction Status Date / Time ciprofloxacin Allergy Anaphylaxis Verified 02/04/19 23:40 Penicillins Allergy Unknown Verified 02/04/19 23:40 - Social History Does the pt smoke?: Yes Smoking Status: Current every day smoker Does the pt drink ETOH?: No Does the pt have substance abuse?: No - Immunizations Immunizations are current?: No - POLST Patient has POLST: No POLST Status: Full Code PD ED PE NORMAL - Vitals Vital signs reviewed: Yes - General General: Alert and oriented X 3, No acute distress, Well developed/nourished - HEENT HEENT: Pharynx benign - Neck Neck: Supple, no meningeal sign, No adenopathy - Cardiac Cardiac: RRR, No murmur - Respiratory Respiratory: No respiratory distress, Clear bilaterally - Abdomen Abdomen: Soft, Non tender - Back Back: No spinal TTP, Other - Derm Derm: Normal color, Warm and dry - Extremities Extremities: No deformity, No edema - Neuro Neuro: Alert and oriented X 3, No motor deficit, Normal speech Results - Vitals Vitals: Vital Signs - 24 hr 02/04/19 02/05/19 02/05/19 23:24 00:55 01:13 Temperature 37.8 C H Heart Rate 111 H 92 89 Respiratory 16 16 16 Rate Blood Pressure 130/74 163/90 H 134/68 H O2 Saturation 97 99 96 02/05/19 02/05/19 01:43 02:15 Temperature 36.8 C Heart Rate 86 88 Respiratory 15 16 Rate Blood Pressure 126/66 108/68 O2 Saturation 95 100 Oxygen O2 Source Room air - Labs Labs: Laboratory Tests 02/05/19 01:17 Urine Color YELLOW Urine Clarity CLEAR Urine pH 5.5 Ur Specific [place] 1.010 Urine Protein NEGATIVE Urine Glucose (UA) NEGATIVE Urine Ketones NEGATIVE Urine Occult Blood SMALL H Urine Nitrite NEGATIVE Urine Bilirubin NEGATIVE Urine Urobilinogen 0.2 (NORMAL) Ur Leukocyte Esterase NEGATIVE Urine RBC 0-5 Urine WBC 0-3 Ur Squamous Epith Cells MOD Squamous H Urine Bacteria None Seen Ur Microscopic Review INDICATED Urine Culture Comments NOT INDICATED PD MEDICAL DECISION MAKING - ED course Complexity details: reviewed results, considered differential, d/w patient Departure - Departure Disposition: 01 Home, Self Care Clinical Impression: Right-sided chest pain, Cough Condition: Stable Record reviewed to determine appropriate education?: Yes Instructions: ED Chest Pain Pleurisy Prescriptions: dexAMETHasone [Decadron] 4 mg PO DAILY #7 tablet Sulfamethox/Trimeth 800/160 [Bactrim Ds 800/160] 1 each PO BID #14 tablet Comments: Continue usual medications. Add Decadron steroid daily for a week. Also add Bactrim antibiotic twice daily for a week. This would be for concern of potential infection causing inflammation around the lung (pleurisy). This may be musculoskeletal pain and so continue usual medications for that. Discharge Date/Time: 02/05/19 02:16
[2019-02-05] MEDS ORDERED: HYDROmorphone 2 MG/ML VIAL IVP STA (00:32)
[2019-02-05] MEDS ORDERED: KETOROLAC 30 MG/ML VIAL IVP STA (00:32)
[2019-02-05] MEDS ORDERED: SODIUM CHLORIDE 0.9% 1,000 ML IV ONE (00:32)
[2019-02-05] MEDS ORDERED: LORazepam 2 MG/ML VIAL IVP STA (00:32)
--- NOTE | 2019-02-05 01:04 | XRAY Report ---
Reason: dyspnea/ cough Procedure Date: 02/05/2019 Accession Number: [id number] / [id number] Procedure: XR - Chest 2 View X-Ray CPT Code: 48606 FULL RESULT: EXAM: CHEST RADIOGRAPHY EXAM DATE: 02/05/2019 12:41 AM CLINICAL HISTORY: Productive cough and shortness of breath. COMPARISON: CHEST 2 VIEW PA/LAT 11/20/2016 8:37 PM, CHEST 2 VIEW PA/LAT 01/18/2017 12:08 AM. TECHNIQUE: 2 views. FINDINGS: Lungs/Pleura: Bilateral bronchial wall thickening. Small patchy right upper lobe perihilar as well as basilar airspace disease. Small streaky left basilar airspace disease. No effusion. No definite pneumothorax. Mediastinum: Heart and mediastinal contours are unremarkable. Other: Moderate multilevel degenerative change within the spine. IMPRESSION: Patchy right upper lobe, right lung base region as well as left lung base region airspace disease. Background of mild bronchitis/bronchiolitis. [facility]
[2019-02-05 01:28] LABS: BILIRUBIN,URINE NEGATIVE (NEGATIVE); GLUCOSE, URINE (UA) NEGATIVE (NEGATIVE); KETONES,URINE (UA) NEGATIVE (NEGATIVE); LEUKOCYTE ESTERASE, URINE NEGATIVE (NEGATIVE); NITRITE,URINE NEGATIVE (NEGATIVE); OCCULT BLOOD,URINE SMALL (NEGATIVE); PH,URINE 5.5 PH (5.0-7.5); PROTEIN,URINE NEGATIVE (NEGATIVE); UROBILINOGEN,URINE 0.2 (NORMAL) E.U./dL (NORMAL)
[2019-02-05 01:29] LABS: CLARITY,URINE CLEAR (CLEAR)
[2019-02-05 01:35] LABS: BACTERIA,URINE None Seen /HPF (None Seen); RBC,URINE 0-5 /HPF (0-5); SQUAMOUS EPITHELIAL CELL,UR MOD Squamous (<= Few)
[2019-02-05] MEDS ORDERED: HYDROmorphone 1 MG/ML CARPUJECT IVP STA (01:45)
[2019-02-05] MEDS ORDERED: CHERRY SYRUP 10 ML UDC PO ONE (01:55)
[2019-02-05] MEDS ORDERED: DEXAMETHASONE 10 MG/ML VIAL PO STA (01:55)
[2019-02-05] MEDS ORDERED: SULFAMETH/TRIMETH DS 800/160 MG TABLET PO STA (01:55)
[2019-02-05 02:15] VITALS: BP 108/68
== END 2019-02-05 02:16 | disposition home or self-care (01) ==
LOC: ED 23:20
DX: R07.9 Chest pain, unspecified (principal); R05 Cough; F17.200 Nicotine dependence, unspecified, uncomplicated
CPT/HCPCS: 71046; 81001; 96361; 96374; 96375; 96376; 99282; 99283; A9270; J1170; J2060; 81003; 87086

== ENCOUNTER 2020-09-02 15:04 | Outpatient (CLI) | payer MEDICARE ==
--- NOTE | 2020-09-03 13:13 | Ultrasound Report ---
PROCEDURE: Testicle INDICATIONS: SCROTAL PAIN TECHNIQUE: Real-time scanning was performed of the scrotum and testicles, with image documentation. Color and p ulse Doppler interrogation was performed of both testicles. COMPARISON: None. FINDINGS: Right: Testicle is normal in size at 2.9 x 1.5 x 2.1 cm, and homogenous in echotexture. Epididymis demonstrates a cystic focus within the head measuring 5 x 3 x 4 mm. prominent hydrocele. Overlying sc rotal skin is normal in thickness. Calcification is noted within the scrotum. Left: Testicle is normal in size at 3.1 x 1.9 x 2.1 cm, and homogeneous in echotexture. Epididymis demonstrates a cystic focus within the head measuring 10 x 4 x 9 mm. prominent hydrocele. Overlying s crotal skin is normal in thickness. Doppler: Color and pulse Doppler demonstrate normal and symmetric arterial flow in both testicles. IMPRESSION: 1. Bilateral hydroceles. 2. Epididymal head cyst bilaterally. Reviewed by: Monserrat Moreira MD on 09/03/2020 1:12 PM PDT Approved by: Monserrat Moreira MD on 09/03/2020 1:12 PM PDT Station ID: [id number]
== END 2020-09-02 15:05 | disposition home or self-care (01) ==
LOC: DI 15:04
DX: N43.3 Hydrocele, unspecified (principal); N50.3 Cyst of epididymis